=== PATIENT | female | born 1955 | race Caucasian/White ===

== ENCOUNTER 2022-10-08 10:14 | Inpatient (IN) ==
[2022-10-08 11:51] LABS: Hematocrit (blood only) 52.6 % (37.0-47.0); Hemoglobin 18.5 g/dl (12.0-16.0); Mean Corpuscular Hemoglobin 30.8 pg (25.0-34.0); Mean Corpuscular Hgb Conc 35.2 g/dL (32.0-36.0); Mean Corpuscular Volume 87.7 fL (80.0-100.0); Mean Platelet Volume 9.1 fL (9.4-12.4); Platelet Count 384 K/uL (130-400); RDW Coefficient of Variation 14.4 % (11.5-14.5); RDW Standard Deviation 45.1 fL (36.4-46.3)
[2022-10-08 12:14] LABS: Basophils # (auto) 0.11 K/uL (0-0.2); Basophils % (auto) 0.4 %; Eosinophils # (auto) 0.29 K/uL (0-0.50); Eosinophils % (auto) 1.2 %; Immature Granulocytes # (auto) 0.58 K/uL (0.01-0.20); Immature Granulocytes % (auto) 2.4 %; Lymphocytes # (auto) 6.09 K/uL (1.2-3.4); Lymphocytes % (auto) 24.9 %; Monocytes % (auto) 6.1 %; Neutrophils # (auto) 15.93 K/uL (1.40-6.50)
[2022-10-08 12:17] LABS: Alanine Aminotransferase 22 U/L (7-52); Albumin Globulin Ratio 1.9 (0.9-2); Albumin Level 4.4 gm/dl (3.4-5.0); Alkaline Phosphatase 57 U/L (34-104); Anion Gap 7 (3-11); Aspartate Aminotransferase 19 U/L (13-39); BUN Creatinine Ratio 24.5 (10-20); Bilirubin,Total 1.4 mg/dl (0.2-1.0); Blood Urea Nitrogen 23 mg/dl (6-23); Calcium 11.5 mg/dl (8.5-10.1); Carbon Dioxide 33 mmol/L (21-32); Chloride 100 mmol/L (98-107); Est GFR (African American) 74.3 ml/min; Est GFR (Non-African American) 64.1 ml/min; Globulin 2.3 gm/dl (2.5-4.0); Glucose 115 mg/dl (70-99(Fasting)); Lipase 34 U/L (11-82); Potassium 3.5 mmol/L (3.5-5.1); Sodium 140 mmol/L (136-145); Total Protein 6.7 gm/dl (6.0-8.3)
[2022-10-08] MEDS ORDERED: ONDANSETRON INJ 2 MG/ML 2 ML VIAL IV STA (12:22)
[2022-10-08] MEDS ORDERED: SODIUM CHLORIDE 0.9% 1000ML 1,000 ML IV ONE (12:22)
[2022-10-08] MEDS ORDERED: KETOROLAC TROMETHAMINE 15 MG/ML VIAL IV ONE (12:22)
[2022-10-08 12:25] LABS: Appearance Urine Cloudy (Clear); Bacteria Urine Automated Negative (Negative); Blood Urine Negative (Negative); Color Urine Dark Yellow; Epithelial Cell Urine Auto >30 /lpf (0-5); Glucose Urine UA Negative (Negative); Ketones Urine 1+ (Negative); Leukocyte Esterase Urine Trace (Negative); Nitrite Urine Positive (Negative); Protein Urine 2+ (Negative); Specific Gravity Urine 1.029 (1.000-1.030); Urobilinogen Urine Negative (Negative); pH Urine 5.5 (4.5-7.5)
[2022-10-08 12:26] LABS: Bilirubin Urine 1+ (Negative)
[2022-10-08 12:45] LABS: Calcium Oxalate Crystals Urine Present (None Prsent); Mucus Urine Present (None Prsent)
[2022-10-08 12:46] LABS: RBC Urine Automated 0-4 /hpf (0-4)
[2022-10-08] MEDS ORDERED: OPTIRAY 350 100ml IV ONE (13:17)
--- NOTE | 2022-10-08 13:31 | CT Scan Report ---
CT SCAN OF THE ABDOMEN AND PELVIS WITH IV CONTRAST CLINICAL HISTORY: Periumbilical abdominal pain. Nausea and vomiting. COMPARISON STUDY: No priors. TECHNIQUE: Following the IV administration of 90 cc of Optiray 350, CT scan of the abdomen and pelvi s is performed from the lung bases to the proximal femora. Images are reviewed in the axial, sagittal , and coronal planes. IV contrast was administered without complication. A dose lowering technique wa s utilized adhering to the principles of ALARA. CT DOSE: 306.84 mGy.cm FINDINGS: Lung bases: The heart is normal in size and without pericardial effusion. There are coronary artery c alcifications. Emphysematous change is suggested. There is minimal patchy groundglass consolidation i n the left lower lobe. Parenchymal scarring is seen in the right lower lobe with cystic change. There are impacted bronchi in the right lower lobe. No pleural effusion is identified. Liver: The contrast-enhanced liver is top normal in size. The liver demonstrates diffusely diminished attenuation indicating steatosis. There is no intrahepatic biliary ductal dilatation. The hepatic ve ins and portal veins are patent. Gallbladder: Adenomyomatosis is suggested in the fundal region. Spleen: Normal in size and attenuation. Pancreas: Unremarkable. Adrenal glands: Unremarkable. Kidneys: The contrast enhanced kidneys are normal in size and without hydronephrosis. The kidneys enh ance symmetrically. A 1.5 cm cyst is seen in the left kidney. Additional punctate cortical hypodensit ies also likely represent cysts but are too small for definitive characterization. Abdominal vasculature: The abdominal aorta is normal in course and caliber noting advanced atheroscle rotic calcification. Bowel: The small bowel loops are distended and fluid-filled measuring up to 3.3 cm diameter. The dist al small bowel and colon are decompressed, and the appearance is consistent with a bowel obstruction. A transition point is identified in the right pelvis involving the ileum as on image #317 and this i s likely in the basis of adhesions. Interloop fluid is noted. The small bowel loops above the transit ion point are fecalized. There is no pneumatosis intestinalis or portal venous gas. No focally thick- walled bowel loops are seen. The appendix is not identified and reported surgically absent. Peritoneum: No intraperitoneal free air is seen. Trace free fluid is noted in the pelvis. There is a small fat-containing umbilical hernia. Lymphadenopathy: None. Pelvic viscera: The bladder is decompressed and not well assessed. The uterus is surgically absent. N o adnexal lesion is seen. Skeletal structures: The skeletal structures are osteopenic. There is mild to moderate lumbosacral sp ondylosis. No lytic or blastic lesions are seen. IMPRESSION: 1. Small bowel obstruction. A transition point is identified in the right pelvis and this is likely o n the basis of adhesions. 2. No intraperitoneal free air is identified. No focally thick-walled bowel loops are identified and there is no pneumatosis intestinalis or portal venous gas. 3. There is interloop fluid and trace pelvic ascites. 4. There is minimal patchy groundglass consolidation in the left lower lobe, typical for a mild pneum onitis. Clinical correlation will be required. 5. Suspect emphysema. 6. Additional findings as above. ACT 112: Negative or not required by law. Electronically signed by: Reji Gay M.D. 10/08/2022 1:28 PM
--- NOTE | 2022-10-08 14:26 | Electrocardiogram Report ---
Test Reason : Blood Pressure : / mmHG Vent. Rate : 077 BPM Atrial Rate : 077 BPM P-R Int : 114 ms QRS Dur : 070 ms QT Int : 358 ms P-R-T Axes : 038 069 047 degrees QTc Int : 405 ms Poor data quality, interpretation may be adversely affected Normal sinus rhythm Nonspecific T wave abnormality Abnormal ECG No previous ECGs available Confirmed by Jose L Strong ([id number]) on 10/08/2022 2:26:08 PM Referred By: REFERRED SELF Confirmed By:Jose L Strong
[2022-10-08] MEDS ORDERED: PIPERACILLIN/TAZOBACTAM 4.5 GM/120 ML BAG IV ONE (15:48)
--- NOTE | 2022-10-08 16:41 | History & Physical Report ---
Date of Service October 08, 2022 Assessment & Plan (1) SBO (small bowel obstruction): (2) Leukocytosis: (3) Lymphocytosis: (4) Hypercalcemia: (5) Emphysema of lung: (6) Hypertension: Plan This is a 66-year-old female who has a significant past medical history of HTN, IBS, insomnia, BEAN, DDD, Fuchs syndrome II right, history of tobacco abuse who presents to ED secondary to abdominal pain, nausea, vomiting x1 day. Small bowel obstruction Patient with previous abdominal surgery x3, partial hysterectomy and appendectomy likely on basis of adhesions Admit to medical General surgery consulted Treat conservatively for now N.p.o., NG tube to LIS IVF NSS 100cc/hr + 20meq KCL IV APAP For mild pain, 2mg IV morphine mod pain, 4mg IV morphine severe pain IV PPI for now - pt reports black emesis, will follow h/h, no epigastric pain repeat KUB c scope 06/26 reviewed 4 polyps removed tubular adenoma no indication on medical end for antibiotics at this current time Leukocytosis Absent lymphocytosis May be reactive in setting of small bowel obstruction and underlying dehydration; however absolute lymphocytosis concerning Peripheral blood smear reviewed and sent for flow cytometry for further eval Hypercalcemia Ca 11.5 Likely elevated in setting of dehydration Hydrate and repeat in a.m. 06/2021 PTH was normal Dehydration in setting of SBO, vomiting continue IVF Polycythemia likely 2/2 dehydration known hx of tobacco use per epic pt Hgb 15 Tobacco abuse hx Emphysema on imaging continue nicotine patch encourage cessation procalcitonin ordered CT chest ? LLL pneumonitis, pt recently completed course of Augmentin her cough is stable and chronic - will hold on antibiotics now and monitor Abnormal UA + nitrites, leuks, no bacturia asymptomatic culture sent HTN on atenolol-chlorthalidone hold for now in setting of NPO BP 123/78, monitor IBS-C on linzess and colace as OP DVT ppx: SQ Heparin Dispo: Med/surg FULL CODE PCP: Yeimy Pt was seen and examined in collaboration with Dr. Chavarria, please see addendum A total of 75 minutes were spent with greater than 50% of that time face to face with the patient, personally reviewing all current laboratories, imaging studies, past medication reconciliation, outpatient chart review, and discussion with specialists to collaborate care for the patient with attending. Please see attending documentation for corrections and/or additions. History of Present Illness Chief Complaint: abd pain, n/v x 1 day. Primary Care Provider: Julio César Gaffney MD This is a 66-year-old female who has a significant past medical history of HTN, IBS, insomnia, BEAN, DDD, Fuchs syndrome II right, history of tobacco abuse who presents to ED secondary to abdominal pain, nausea, vomiting x1 day. 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 She had 7-8 episodes of dark emesis. Her last episode of emesis was approximately 9 AM. She also complains of periumbilical abdominal pain. Pain was gradual in onset, constant, currently 5 out of 10, waxes and wanes in severity, nothing makes it better and nothing makes it worse. She did have a very small hard bowel movement this morning. She denies melena or bright red blood per rectum. She has history of IBS and therefore suffers from constipation. She takes Linzess and Colace for this. She feels like as of late she has been more constipated despite her current regimen. She denies ever having similar symptoms in the past. She did not try anything for her symptoms at home. She denies fever, chills, sweats, lightheadedness, dizziness, chest pain, shortness of breath, dysuria, increased urgency or frequency with urination, or hematuria. Over the past 2 weeks patient has been suffering for a sinus infection. She was placed on a course of Augmentin as well as prednisone. She completed the Augmentin yesterday and the prednisone has been complete as well. She does have a chronic cough due to her prior history of smoking. She is tobacco free for 1 week and currently using a NicoDerm patch. She denies any productive cough or hemoptysis. In ED patient remained hemodynamically stable. CT abdomen pelvis revealed small bowel obstruction with transition point in the right pelvis likely on the basis of adhesions. There is interloop fluid and trace pelvic ascites. Minimal patchy groundglass consolidation of the left lower lobe, typical for a mild pneumonitis and suspect emphysema. She received IV fluid as well as IV Zosyn while in ED due to possible pneumonia. Allergies Allergy/AdvReac Type Severity Reaction Status Date / Time No Known Allergies Allergy Unverified 06/20/21 01:48 Home Medications Medication Instructions Recorded Confirmed Type aspirin 81 mg tablet,delayed 81 mg PO DAILY 06/20/21 10/08/22 History release (Rakesh Low Dose Aspirin) atenolol 50 mg-chlorthalidone 25 1 tab PO DAILY 06/20/21 10/08/22 History mg tablet bupropion HCl 150 mg 24 hr tablet, 150 mg PO DAILY 06/20/21 10/08/22 History extended release celecoxib 200 mg capsule 200 mg PO DAILY 06/20/21 10/08/22 History multivitamin 1 tab PO DAILY 06/20/21 10/08/22 History potassium chloride 20 mEq 20 meq PO DAILY 06/20/21 10/08/22 History tablet,extended release(part/cryst) docusate sodium 100 mg capsule 100 mg PO DAILY 10/08/22 10/08/22 History (Colace) flaxseed oil 1,000 mg capsule 1,000 mg PO DAILY 10/08/22 10/08/22 History linaclotide 145 mcg capsule 145 mcg PO DAILYBB 10/08/22 10/08/22 History (Linzess) nicotine 21 mg/24 hr daily 1 patch transdermal DAILY 10/08/22 10/08/22 History transdermal patch omeprazole 40 mg capsule,delayed 40 mg PO DAILY 10/08/22 10/08/22 History release trazodone 50 mg tablet 50 mg PO HS 10/08/22 10/08/22 History Past Med/Surg History Medical History DDD (degenerative disc disease) follows pain clinic for injections Fuchs' syndrome II Generalized anxiety disorder History of tobacco abuse Hypertension IBS (irritable bowel syndrome) Insomnia Surgical History History of carpal tunnel surgery of right wrist History of partial hysterectomy History of tonsillectomy and adenoidectomy Hx of appendectomy Hx of section x3 Hx of tubal ligation Family History Mother Breast cancer Hypertension Father Diabetes Social History Smoking Status: Former smoker Tobacco Type: Cigarettes packs per day: 1; Cigarettes Per Day: 20; Hx Alcohol Use: No Hx Substance Use: No Preferred Language: [place] marital status: / Current Living Situation: Family Current Living Situation Comment: son Feels Safe at Home: Yes Review of Systems Review of Systems: All systems reviewed & are unremarkable except as noted in HPI & below Physical Exam Physical Exam: Constitutional: WD/WN, vitals as above, NAD, sitting up in bed, pleasant, conversing easily Head: Normocephalic, Atraumatic Eyes: PERRL, conjunctivae normal, anicteric sclerae ENMT: external ear and nose normal, oropharynx normal Neck: trachea midline, no thyromegaly normal visual inspection Respiratory: normal respiratory effort, lungs clear to auscultation, no wheeze, rales, rhonchi. Normal insp/exp effort, no accessory muscle use Cardiovascular: RRR, no murmur, no edema Vessels: no JVD or carotid bruit Chest: normal inspection of chest Abdomen: hyperactive bs, soft, tender to palp around umbilicus, no rebound, guarding or rigidity, no hepatosplenomegaly Musculoskeletal: no cyanosis or clubbing, extremities motor strength 5/5 Skin: no rashes, warm and dry normal turgor Neurologic: PERRL, EOMI, accommodation nl, no face palsy, no dysarthria CN's II-XI intact bilaterally and moves all extremities Psychiatric: A+Ox3, euthymic affect Lymphatic: no cervical or axillary lymphadenopathy : deferred Results & Data Results & Data ([facility]) Vital Signs (Past 12 Hours) Vital Signs Temp Pulse Pulse Resp BP BP Pulse Ox 10/08/22 16:00 75 18 123/78 77 L 10/08/22 13:31 76 18 118/66 94 10/08/22 10:42 36.6 C 85 16 103/73 95 O2 Del Method 10/08/22 16:00 Room Air 10/08/22 13:31 10/08/22 10:42 Room Air Diagnostic Findings Abdomen/Pelvis CT 10/08/22 12:22 CT SCAN OF THE ABDOMEN AND PELVIS WITH IV CONTRAST CLINICAL HISTORY: Periumbilical abdominal pain. Nausea and vomiting. COMPARISON STUDY: No priors. TECHNIQUE: Following the IV administration of 90 cc of Optiray 350, CT scan of the abdomen and pelvis is performed from the lung bases to the proximal femora. Images are reviewed in the axial, sagittal, and coronal planes. IV contrast was administered without complication. A dose lowering technique was utilized adhering to the principles of ALARA. CT DOSE: 306.84 mGy.cm FINDINGS: Lung bases: The heart is normal in size and without pericardial effusion. There are coronary artery calcifications. Emphysematous change is suggested. There is minimal patchy groundglass consolidation in the left lower lobe. Parenchymal scarring is seen in the right lower lobe with cystic change. There are impacted bronchi in the right lower lobe. No pleural effusion is identified. Liver: The contrast-enhanced liver is top normal in size. The liver demonstrates diffusely diminished attenuation indicating steatosis. There is no intrahepatic biliary ductal dilatation. The hepatic veins and portal veins are patent. Gallbladder: Adenomyomatosis is suggested in the fundal region. Spleen: Normal in size and attenuation. Pancreas: Unremarkable. Adrenal glands: Unremarkable. Kidneys: The contrast enhanced kidneys are normal in size and without hydronephrosis. The kidneys enhance symmetrically. A 1.5 cm cyst is seen in the left kidney. Additional punctate cortical hypodensities also likely represent cysts but are too small for definitive characterization. Abdominal vasculature: The abdominal aorta is normal in course and caliber noting advanced atherosclerotic calcification. Bowel: The small bowel loops are distended and fluid-filled measuring up to 3.3 cm diameter. The distal small bowel and colon are decompressed, and the appearance is consistent with a bowel obstruction. A transition point is identified in the right pelvis involving the ileum as on image #[id number] and this is likely in the basis of adhesions. Interloop fluid is noted. The small bowel loops above the transition point are fecalized. There is no pneumatosis intestinalis or portal venous gas. No focally thick-walled bowel loops are seen. The appendix is not identified and reported surgically absent. Peritoneum: No intraperitoneal free air is seen. Trace free fluid is noted in the pelvis. There is a small fat-containing umbilical hernia. Lymphadenopathy: None. Pelvic viscera: The bladder is decompressed and not well assessed. The uterus is surgically absent. No adnexal lesion is seen. Skeletal structures: The skeletal structures are osteopenic. There is mild to moderate lumbosacral spondylosis. No lytic or blastic lesions are seen. IMPRESSION: 1. Small bowel obstruction. A transition point is identified in the right pelvis and this is likely on the basis of adhesions. 2. No intraperitoneal free air is identified. No focally thick-walled bowel loops are identified and there is no pneumatosis intestinalis or portal venous gas. 3. There is interloop fluid and trace pelvic ascites. 4. There is minimal patchy groundglass consolidation in the left lower lobe, typical for a mild pneumonitis. Clinical correlation will be required. 5. Suspect emphysema. 6. Additional findings as above. ACT 112: Negative or not required by law. Electronically signed by: Reji Gay M.D. 10/08/2022 1:28 PM Medications Administered Medication List Discontinued Medications Sodium Chloride (Nss 1000ml) 1,000 mls @ 999 mls/hr IV .Q1H1M ONE Stop: 10/08/22 13:22 Last Infusion: 10/08/22 15:18 Dose: 0 mls/hr Documented By: Admin: 10/08/22 12:41 Dose: 999 mls/hr Documented By: JOY Piperacillin Sod/Tazobactam Sod (Zosyn) 4.5 gm in 120 mls @ 240 mls/hr IV NOW ONE Stop: 10/08/22 16:17 Last Admin: 10/08/22 16:13 Dose: 240 mls/hr Documented By: Ioversol (Optiray 350 100ml) 90 ml IV ONCE ONE Stop: 10/08/22 13:18 Last Admin: 10/08/22 13:07 Dose: 90 ml Documented By: CARMELA Ketorolac Tromethamine (Ketorolac Tromethamine 15 Mg/Ml Vial) 15 mg IV NOW ONE Stop: 10/08/22 12:23 Last Admin: 10/08/22 12:41 Dose: 15 mg Documented By: JOY Ondansetron HCl (Ondansetron Inj 2 Mg/Ml 2 Ml Vial) 4 mg IV NOW STA Stop: 10/08/22 12:23 Last Admin: 10/08/22 12:41 Dose: 4 mg Documented By: JOY ECG Rate (beats per minute): 77 Rhythm: normal sinus Additional Comments: qtc 405ms, reviewed by me COVID-19 Results Results COVID-19 Adm Lab Results: RBC 6.00 M/uL (4.20-5.40) H 10/08/22 WBC 24.50 K/ul (4.8-10.8) H 10/08/22 Hgb 18.5 g/dl (12.0-16.0) H 10/08/22 Hct 52.6 % (37.0-47.0) H 10/08/22 Plt Count 384 K/uL (130-400) 10/08/22 Neutrophils (%) (Auto) 65.0 % 10/08/22 Lymphocytes (%) (Auto) 24.9 % 10/08/22 Monocytes # (Auto) 1.50 K/uL (0.11-0.59) H 10/08/22 Eosinophils # (Auto) 0.29 K/uL (0-0.50) 10/08/22 Immature Granulocyte % (Auto) 2.4 % 10/08/22 Neutrophils # (Auto) 15.93 K/uL (1.40-6.50) H 10/08/22 Lymphocytes # (Auto) 6.09 K/uL (1.2-3.4) H 10/08/22 Monocytes # (Auto) 1.50 K/uL (0.11-0.59) H 10/08/22 Eosinophils # (Auto) 0.29 K/uL (0-0.50) 10/08/22 Basophils # (Auto) 0.11 K/uL (0-0.2) 10/08/22 Immature Granulocyte # (Auto) 0.58 K/uL (0.01-0.20) H 10/08 Na 140 mmol/L (136-145) 10/08/22 K 3.5 mmol/L (3.5-5.1) 10/08/22 Cl 100 mmol/L (98-107) 10/08/22 CO2 33 mmol/L (21-32) H 10/08/22 Anion Gap 7 (3-11) 10/08/22 BUN 23 mg/dl (6-23) 10/08/22 Creatinine 0.94 mg/dl (0.6-1.2) 10/08/22 BUN/Creatinine Ratio 24.5 (10-20) H 10/08/22 Glucose Level 115 mg/dl (70-99(Fasting)) H 10/08/22 Ca 11.5 mg/dl (8.5-10.1) H 10/08/22 Total Bilirubin 1.4 mg/dl (0.2-1.0) H 10/08/22 AST/SGOT 19 U/L (13-39) 10/08/22 ALT/SGPT 22 U/L (7-52) 10/08/22 Alkaline Phosphatase 57 U/L (34-104) 10/08/22 Total Protein 6.7 gm/dl (6.0-8.3) 10/08/22 Albumin 4.4 gm/dl (3.4-5.0) 10/08/22 Globulin 2.3 gm/dl (2.5-4.0) L 10/08/22 Albumin/Globulin Ratio 1.9 (0.9-2) 10/08/22 Procalcitonin < 0.05 ng/ml (0-0.5) 10/08/22 Chest X-Ray 10/08/22 Code Status & VTE Plan Code Status FULL CODE VTE Prophylaxis Plan VTE Prophylaxis will be ordered: Yes Supervising Physician Co-Signing Physician Notes I have seen and examined the patient and have discussed the case with the provider above. I agree with the assessment and plan as stated with the following exceptions. Ms. Stout is a 66 yo smoker who quit one week ago presenting with excessive vomiting and abdominal pain 2/2 SBO. Vomiting began overnight after eating broccoli/cheese soup. She reports pain in her nose with the newly placed NG tube. She has upper abdominal pain which is constant. On physical exam she is in NAD aside from watering eyes and minor bleeding from NG tube insertion site. Lungs are clear to auscultation throughout. Cardiac auscultation reveals regular rate and rhythm with S1/2 heard and no mgr. Abdomen: +BS-normoactive. TTP in epigastric and LUQ, soft, nondistended. Mentating clearly, skin warm and dry. Labs reviewed and she appears dehydrated, consistent with history of vomiting. WBC 24 with left shift, H/H 18.5/53, plt 384. Chemistry within normal limits. Total bili elevated at 1.4 with normal LFTs, lactate negative, procal negative, UA contaminated with no recent reports of UTI symptoms. CT a/p reveals SBO wit a transition point in the right pelvis thought to be on the basis of adhesions. No free air seen, no portal venous gas and no bowel inflammation. Although there is some evidence of patchy pneumonitis at the lung bases, she is a smoker and was recently treated for a respiratory infection with a course of augmentin. She denies any respiratory symptoms at this time. 66 yo F presents with SBO and subsequent dehydration. Agree with NG tube placement per surgery who saw her in the ER, and conservative management. No indication for antibiotics at this time. Bowel rest with moniotring NG tube output overnight. Cont IVF. Deon,
--- NOTE | 2022-10-08 16:49 | Surgery Consultation ---
Date of Consultation October 08, 2022 Assessment & Plan (1) SBO (small bowel obstruction): pt is a 66 year-old female who presents to ER with abdominal pain with nausea and vomiting, IMP: SBO, Plan, no surgery indication now, I agree with conservative treatment first, NPO, IV fluid, iv antibiotic, NG tube, control pain, repeat labs and KUB in morning, pt may need surgery treatment if pt's symptoms are getting worse, pt agreed wit the plan, I answered all questions, will F/U History of Present Illness Reason for Consultation: SBO Requesting Physician: Jie Dela Cruz History of Present Illness History of Present Illness Chief Complaint: abd pain, n/v x 1 day. Primary Care Provider: Julio César Gaffney MD This is a 66-year-old female who has a significant past medical history of HTN, IBS, insomnia, BEAN, DDD, Fuchs syndrome II right, history of tobacco abuse who presents to ED secondary to abdominal pain, nausea, vomiting x1 day. 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 She had 7-8 episodes of dark emesis. Her last episode of emesis was approximately 9 AM. She also complains of periumbilical abdominal pain. I ( Hector Marie MD ) got a call for consult SBO, I reviewed pt's H/P, labs and CT scan with pt, Allergies Allergy/AdvReac Type Severity Reaction Status Date / Time No Known Allergies Allergy Unverified 06/20/21 01:48 Home Medications Medication Instructions Recorded Confirmed Type aspirin 81 mg tablet,delayed 81 mg PO DAILY 06/20/21 10/08/22 Hi story release (Rakesh Low Dose Aspirin) atenolol 50 mg-chlorthalidone 25 1 tab PO DAILY 06/20/21 3 History mg tablet bupropion HCl 150 mg 24 hr tablet, 150 mg PO DAILY 06/20/2110/08 History extended release celecoxib 200 mg capsule 200 mg PO DAILY 06/20/21 10/08/22 Histor y multivitamin 1 tab PO DAILY 06/20/21 10/08/22 History potassium chloride 20 mEq 20 meq PO DAILY 06/20/21 10/08/22 Histo ry tablet,extended release(part/cryst) docusate sodium 100 mg capsule 100 mg PO DAILY 10/08/22 10/08/22 History (Colace) flaxseed oil 1,000 mg capsule 1,000 mg PO DAILY 10/08/22 10/08/22 H istory linaclotide 145 mcg capsule 145 mcg PO DAILYBB 10/08/22 10/08/22 His tory (Linzess) nicotine 21 mg/24 hr daily 1 patch transdermal DAILY 10/08/22 3 History transdermal patch omeprazole 40 mg capsule,delayed 40 mg PO DAILY 10/08/22 3 History release B trazodone 50 mg tablet 50 mg PO HS 10/08/22 10/08/22 History Past Med/Surg History Medical History(Updated 10/08/22 @ 16:18 by Jie Adams PA-C) DDD (degenerative disc disease) follows pain clinic for injectionsFuchs' syndrome II Generalized anxiety disorder History of tobacco abuse Hypertension IBS (irritable bowel syndrome) Insomnia Surgical History(Updated 10/08/22 @ 16:03 by Jie Adams PA-C) History of carpal tunnel surgery of right wrist History of partial hysterectomy History of tonsillectomy and adenoidectomy Hx of appendectomy Hx of section x3Hx of tubal ligation Family History(Updated 10/08/22 @ 16:04 by Jie Adams PA-C) Mother Breast cancer HypertensionFather Diabetes Social History(Updated 10/08/22 @ 16:19 by Jie Adams PA-C) Smoking Status: Former smoker Tobacco Type: Cigarettes packs per day: 1; Cigarettes Per Day: 20; Hx Alcohol Use: No Hx Substance Use: No Preferred Language: Japanese marital status: / Current Living Situation: Family Current Living Situation Comment: son Feels Safe at Home: Yes Allergies Allergy/AdvReac Type Severity Reaction Status Date / Time No Known Allergies Allergy Unverified 06/20/21 01:48 Home Medications Medication Instructions Recorded Confirmed Type aspirin 81 mg tablet,delayed 81 mg PO DAILY 06/20/21 10/08/22 History release (Rakesh Low Dose Aspirin) atenolol 50 mg-chlorthalidone 25 1 tab PO DAILY 06/20/21 10/08/22 History mg tablet bupropion HCl 150 mg 24 hr tablet, 150 mg PO DAILY 06/20/21 10/08/22 History extended release celecoxib 200 mg capsule 200 mg PO DAILY 06/20/21 10/08/22 History multivitamin 1 tab PO DAILY 06/20/21 10/08/22 History potassium chloride 20 mEq 20 meq PO DAILY 06/20/21 10/08/22 History tablet,extended release(part/cryst) docusate sodium 100 mg capsule 100 mg PO DAILY 10/08/22 10/08/22 History (Colace) flaxseed oil 1,000 mg capsule 1,000 mg PO DAILY 10/08/22 10/08/22 History linaclotide 145 mcg capsule 145 mcg PO DAILYBB 10/08/22 10/08/22 History (Linzess) nicotine 21 mg/24 hr daily 1 patch transdermal DAILY 10/08/22 10/08/22 History transdermal patch omeprazole 40 mg capsule,delayed 40 mg PO DAILY 10/08/22 10/08/22 History release trazodone 50 mg tablet 50 mg PO HS 10/08/22 10/08/22 History Patient History Medical History (Updated 10/08/22 @ 16:50 by Hector Marie MD) DDD (degenerative disc disease) follows pain clinic for injections Fuchs' syndrome II Generalized anxiety disorder History of tobacco abuse Hypertension IBS (irritable bowel syndrome) Insomnia Surgical History (Updated 10/08/22 @ 16:03 by Jie Adams PA-C) History of carpal tunnel surgery of right wrist History of partial hysterectomy History of tonsillectomy and adenoidectomy Hx of appendectomy Hx of section x3 Hx of tubal ligation Family History (Updated 10/08/22 @ 16:04 by Jie Adams PA-C) Mother Breast cancer Hypertension Father Diabetes Social History (Updated 10/08/22 @ 16:19 by Jie Adams PA-C) Smoking Status: Former smoker Tobacco Type: Cigarettes packs per day: 1; Cigarettes Per Day: 20; Hx Alcohol Use: No Hx Substance Use: No Preferred Language: Japanese marital status: / Current Living Situation: Family Current Living Situation Comment: son Feels Safe at Home: Yes Review of Systems Constitutional: as per Subjective / HPI Eyes: as per Subjective / HPI Respiratory: as per Subjective / HPI Cardiovascular: Additional Comments: HTN Gastrointestinal: IBS Musculoskeletal: as per Subjective / HPI Neurologic: as per Subjective / HPI Psychiatric: as per Subjective / HPI (insomnia) Endocrine: as per Subjective / HPI Hematologic / Lymphatic: as per Subjective / HPI Physical Exam Constitutional: WD/WN, vitals as above Eyes: PERRL, conjunctivae normal, anicteric sclerae Neck: trachea midline, no thyromegaly Respiratory: normal respiratory effort, lungs clear to auscultation Cardiovascular: RRR, no murmur, no edema Gastrointestinal (Abdomen): soft, mild tenderness leonardo-umbilical area, no rebound pain, no distend, BS +, Musculoskeletal: no cyanosis or clubbing, extremities motor strength 5/5 Neurologic: patellar DTR's 2+ bilat, sensation intact Psychiatric: A+Ox3, euthymic affect Results & Data ([facility]) Vital Signs (Past 12 Hours) Vital Signs Temp Pulse Pulse Resp BP BP Pulse Ox 10/08/22 16:00 75 18 123/78 77 L 10/08/22 13:31 76 18 118/66 94 10/08/22 10:42 36.6 C 85 16 103/73 95 O2 Del Method 10/08/22 16:00 Room Air 10/08/22 13:31 10/08/22 10:42 Room Air Laboratory Results Abnormal lab results 10/08/22 10/08/22 10/08/22 Range/Units 11:23 11:23 11:50 WBC 24.50 H (4.8-10.8) K/ul RBC 6.00 H (4.20-5.40) M/uL Hgb 18.5 H (12.0-16.0) g/dl Hct 52.6 H (37.0-47.0) % MPV 9.1 L (9.4-12.4) fL Neut # (Auto) 15.93 H (1.40-6.50) K/uL Lymph # (Auto) 6.09 H (1.2-3.4) K/uL Clay # (Auto) 1.50 H (0.11-0.59) K/uL Immature Gran # (Auto) 0.58 H (0.01-0.20) K/uL Carbon Dioxide 33 H (21-32) mmol/L BUN/Creatinine Ratio 24.5 H (10-20) Glucose 115 H (70-99(Fasting)) mg/dl Calcium 11.5 H (8.5-10.1) mg/dl Total Bilirubin 1.4 H (0.2-1.0) mg/dl Globulin 2.3 L (2.5-4.0) gm/dl Urine Appearance Cloudy A (Clear) Urine Protein 2+ H (Negative) Urine Ketones 1+ H (Negative) Urine Nitrite Positive A (Negative) Urine Bilirubin 1+ H (Negative) Ur Leukocyte Esterase Trace H (Negative) U Epithel Cells (Auto) >30 H (0-5) /lpf Calcium Oxalate Crystal Present A (None Prsent) Urine Mucus Present A (None Prsent) Diagnostic Findings CT SCAN OF THE ABDOMEN AND PELVIS WITH IV CONTRAST CLINICAL HISTORY: Periumbilical abdominal pain. Nausea and vomiting. COMPARISON STUDY: No priors. TECHNIQUE: Following the IV administration of 90 cc of Optiray 350, CT scan of the abdomen and pelvis is performed from the lung bases to the proximal femora. Images are reviewed in the axial, sagittal, and coronal planes. IV contrast was administered without complication. A dose lowering technique was utilized adhering to the principles of ALARA. CT DOSE: 306.84 mGy.cm FINDINGS: Lung bases: The heart is normal in size and without pericardial effusion. There are coronary artery calcifications. Emphysematous change is suggested. There is minimal patchy groundglass consolidation in the left lower lobe. Parenchymal scarring is seen in the right lower lobe with cystic change. There are impacted bronchi in the right lower lobe. No pleural effusion is identified. Liver: The contrast-enhanced liver is top normal in size. The liver demonstrates diffusely diminished attenuation indicating steatosis. There is no intrahepatic biliary ductal dilatation. The hepatic veins and portal veins are patent. Gallbladder: Adenomyomatosis is suggested in the fundal region. Spleen: Normal in size and attenuation. Pancreas: Unremarkable. Adrenal glands: Unremarkable. Kidneys: The contrast enhanced kidneys are normal in size and without hydronephrosis. The kidneys enhance symmetrically. A 1.5 cm cyst is seen in the left kidney. Additional punctate cortical hypodensities also likely represent cysts but are too small for definitive characterization. Abdominal vasculature: The abdominal aorta is normal in course and caliber noting advanced atherosclerotic calcification. Bowel: The small bowel loops are distended and fluid-filled measuring up to 3.3 cm diameter. The distal small bowel and colon are decompressed, and the appearance is consistent with a bowel obstruction. A transition point is identified in the right pelvis involving the ileum as on image #317 and this is likely in the basis of adhesions. Interloop fluid is noted. The small bowel loops above the transition point are fecalized. There is no pneumatosis intestinalis or portal venous gas. No focally thick-walled bowel loops are seen. The appendix is not identified and reported surgically absent. Peritoneum: No intraperitoneal free air is seen. Trace free fluid is noted in the pelvis. There is a small fat-containing umbilical hernia. Lymphadenopathy: None. Pelvic viscera: The bladder is decompressed and not well assessed. The uterus is surgically absent. No adnexal lesion is seen. Skeletal structures: The skeletal structures are osteopenic. There is mild to moderate lumbosacral spondylosis. No lytic or blastic lesions are seen. IMPRESSION: 1. Small bowel obstruction. A transition point is identified in the right pelvis and this is likely on the basis of adhesions. 2. No intraperitoneal free air is identified. No focally thick-walled bowel loops are identified and there is no pneumatosis intestinalis or portal venous gas. 3. There is interloop fluid and trace pelvic ascites. 4. There is minimal patchy groundglass consolidation in the left lower lobe, typical for a mild pneumonitis. Clinical correlation will be required. 5. Suspect emphysema. 6. Additional findings as above.
--- NOTE | 2022-10-08 17:01 | XRay Report ---
XR chest 1V portable HISTORY: 66 years-old Female sbo acute shortness of breath COMPARISON: CT abdomen and pelvis of same day TECHNIQUE: AP view of the chest FINDINGS: Cardiomediastinal and hilar silhouettes are within normal limits. Pulmonary emphysema. No pneumothora x, large pleural effusion or overt pulmonary edema. Mild subsegmental right basilar densities are aga in noted. Cystic focus of the right lower lobe is better seen on the comparison exam. Minimal interst itial coarsening of the left lung base. Degenerative changes of the shoulders and spine. IMPRESSION: 1. Mild right basilar atelectasis/scarring. 2. The subtle groundglass densities of the left lower lobe described on the CT study of same day are not well visualized by radiography. 3. Mild pulmonary emphysema. ACT 112: Negative or not required by law. The above report was generated using voice recognition software. It may contain grammatical, syntax o r spelling errors. Electronically signed by: Pb Felder M.D. 10/08/2022 5:00 PM
[2022-10-08] MEDS ORDERED: SODIUM CHLORIDE 0.65% NA SOLN 45 ML (OCEAN) NAE PRN (18:04)
[2022-10-08] MEDS ORDERED: CHLORASEPTIC 1.4% SOLN 180 ML BTL MT PRN (18:04)
[2022-10-08] MEDS ORDERED: SODIUM CHLORIDE 0.65% NA SOLN 45 ML (OCEAN) NAE STA (18:11)
[2022-10-08] MEDS ORDERED: CHLORASEPTIC 1.4% SOLN 180 ML BTL MT STA (18:12)
--- NOTE | 2022-10-08 19:03 | XRay Report ---
KUB HISTORY: Status post placement of an enteric tube. NG placement COMPARISON: CT abdomen and pelvis of same day FINDINGS: Status post placement of an enteric tube, coiled within the stomach with distal tip overlyi ng the gastric cardia. Medial right lung base opacities are again noted. Dilated loops of small bowel within the upper abdomen. No renal calculi. No ureteral calculi. No pneumoperitoneum or pneumatosis . No fracture. IMPRESSION: Status post placement of an enteric tube, distal tip overlying the gastric cardia. ACT 112: Negative or not required by law. The above report was generated using voice recognition software. It may contain grammatical, syntax o r spelling errors. Electronically signed by: Pb Felder M.D. 10/08/2022 7:01 PM
--- NOTE | 2022-10-08 19:08 | Emergency Department Note ---
Impression & Plan SBO (small bowel obstruction), Vomiting ED Provider Note INFORMANT: Patient ED PROVIDER(S): Malvin Owens DO CHIEF COMPLAINT: Nausea and vomiting PLAN: Disposition: Admission Condition: Stable Outpatient prescription management: none Referral: I spoke with the hospitalist, who will see the patient for admission/observation and further evaluation and consultation. MEDICAL DECISION MAKIN-year-old female presents to the ED with a chief complaint of awakening in the middle the night with nausea and vomiting. She does describes her vomiting is black. She also reports some periumbilical discomfort. She has vomiting every 1 hour through the night. She denies any gas from below. She states that she has a history of hysterectomy and appendectomy as well as 3 C-sections. The patient reports her last episode of nausea and vomiting was at 9:30 AM. She has had some dry heaves. She does have some tenderness in the periumbilical region on my exam. She states that she did move some bowel this morning a small amount. She was recently on antibiotics and prednisone for sinus infection. Her last dose of prednisone was on Wednesday. Urine appears to be contaminated but no obvious infection. A CT scan of the abdomen pelvis shows a small bowel obstruction likely related to adhesions. She may have a left lower lobe pneumonitis on CT scan as well. A chest x-ray did not show that. She does have a leukocytosis of 24,000. Hemoglobin is 18 suggesting some dehydration. EKG shows a normal sinus rhythm. Lipase was negative for pancreatitis. The patient was treated with IV fluids. She was given IV Zosyn. She was also given some IV Zofran and IV Toradol. She will be seen by the hospitalist for further evaluation and care. I did speak with them. I did page surgery and they were made aware of the situation as well. Triage Nursing notes reviewed. Vital Signs: reviewed Prior /Outside records reviewed: none Differential diagnosis: Differential includes small bowel obstruction, electrolyte abnormality, dehydration, infection, other. Diagnostics, as interpreted by me: 12 lead ECG: Normal sinus rhythm at a rate of 77. No ST elevation. No PVCs. Normal QTC. Cardiac Monitoring: none Medical decision rules: none Imaging studies: Chest x-ray: No obvious pneumonia. Procedures: none. Critical care: none. HPI: See MDM above. PAST MEDICAL HISTORY: See Below PAST SURGICAL HISTORY: See Below SOCIAL HISTORY: See Below HOME MEDICATIONS: See Below ALLERGIES: See Below VITALS: See Below PHYSICAL EXAMINATION: CONSTITUTIONAL/VITAL SIGNS: Reviewed GENERAL: Non-toxic in appearance. INTEGUMENTARY: Warm, dry, and Spur. HEAD: Normocephalic. EYES: without scleral icterus. ENT/OROPHARYNX: clear and moist. RESPIRATORY: No increased work of breathing. Lungs clear. CARDIOVASCULAR: Regular rate. Regular rhythm. GI/ABDOMEN: Soft and tender in the periumbilical area. Decreased bowel sounds. EXTREMITIES: Normal NEUROLOGICAL: Intact without focal deficits. PSYCHIATRIC: Normal affect. MUSCULOSKELETAL: Normal. TRIAGE NURSING DOCUMENTATION REVIEWED. Past Med/Surg History Medical History DDD (degenerative disc disease) follows pain clinic for injections Fuchs' syndrome II Generalized anxiety disorder History of tobacco abuse Hypertension IBS (irritable bowel syndrome) Insomnia Surgical History History of carpal tunnel surgery of right wrist History of partial hysterectomy History of tonsillectomy and adenoidectomy Hx of appendectomy Hx of section x3 Hx of tubal ligation Family History Mother Breast cancer Hypertension Father Diabetes Social History Smoking Status: Former smoker Tobacco Type: Cigarettes packs per day: 1; Cigarettes Per Day: 20; Hx Alcohol Use: No Hx Substance Use: No Preferred Language: Syriac marital status: / Current Living Situation: Family Current Living Situation Comment: son Feels Safe at Home: Yes Allergies Allergies Allergy/AdvReac Type Severity Reaction Status Date / Time No Known Allergies Allergy Unverified 06/20/21 01:48 Home Meds Home Medications Medication Instructions Recorded Confirmed aspirin 81 mg tablet,delayed 81 mg PO DAILY 06/20/21 10/08/22 release (Rakesh Low Dose Aspirin) atenolol 50 mg-chlorthalidone 25 1 tab PO DAILY 06/20/21 10/08/22 mg tablet bupropion HCl 150 mg 24 hr tablet, 150 mg PO DAILY 06/20/21 10/08/22 extended release celecoxib 200 mg capsule 200 mg PO DAILY 06/20/21 10/08/22 multivitamin 1 tab PO DAILY 06/20/21 10/08/22 potassium chloride 20 mEq 20 meq PO DAILY 06/20/21 10/08/22 tablet,extended release(part/cryst) docusate sodium 100 mg capsule 100 mg PO DAILY 10/08/22 10/08/22 (Colace) flaxseed oil 1,000 mg capsule 1,000 mg PO DAILY 10/08/22 10/08/22 linaclotide 145 mcg capsule 145 mcg PO DAILYBB 10/08/22 10/08/22 (Linzess) nicotine 21 mg/24 hr daily 1 patch transdermal DAILY 10/08/22 10/08/22 transdermal patch omeprazole 40 mg capsule,delayed 40 mg PO DAILY 10/08/22 10/08/22 release trazodone 50 mg tablet 50 mg PO HS 10/08/22 10/08/22 Results & Data (ED) Vital Signs Vital Signs - 24 hr 10/08/22 10:42 10/08/22 13:31 10/08/22 16:00 Temperature 36.6 C Temperature Source Temporal Artery Scan Pulse Rate 85 76 Pulse Rate [Apical] 75 Pulse Rate from SpO2 Sensor 77 Pulse Rhythm [Apical] Regular Respiratory Rate 16 18 18 Respiratory Effort / Characteristics Non-Labored Non-Labored Respiratory Depth Normal Normal Respiratory Pattern Regular Blood Pressure 103/73 118/66 Blood Pressure [Left Arm] 123/78 Blood Pressure Mean 83 83 Blood Pressure Mean [Left Arm] 93 Blood Pressure Position [Left Arm] Lying Pulse Oximetry 95 94 77 L Oxygen Delivery Method Room Air Room Air Sepsis Recent Fever Within 48 Hours No Sepsis New/Unexplained Change in Mental Status No Sepsis Action Taken by Nursing No Action Required 10/08/22 18:00 10/08/22 19:03 Temperature Temperature Source Pulse Rate Pulse Rate [Apical] 73 Pulse Rate from SpO2 Sensor Pulse Rhythm [Apical] Regular Respiratory Rate 18 Respiratory Effort / Characteristics Non-Labored Respiratory Depth Normal Respiratory Pattern Regular Blood Pressure Blood Pressure [Left Arm] 112/58 L Blood Pressure Mean Blood Pressure Mean [Left Arm] 76 Blood Pressure Position [Left Arm] Lying Pulse Oximetry 97 Oxygen Delivery Method Room Air Room Air Sepsis Recent Fever Within 48 Hours Sepsis New/Unexplained Change in Mental Status Sepsis Action Taken by Nursing Laboratory Data 10/08/22 11:23 10/08/22 11:23 Lab Results 10/08/22 10/08/22 10/08/22 Range/Units 11:23 11:23 11:50 WBC 24.50 H (4.8-10.8) K/ul RBC 6.00 H (4.20-5.40) M/uL Hgb 18.5 H (12.0-16.0) g/dl Hct 52.6 H (37.0-47.0) % MCV 87.7 (80.0-100.0) fL MCH 30.8 (25.0-34.0) pg MCHC 35.2 (32.0-36.0) g/dL RDW Std Deviation 45.1 (36.4-46.3) fL RDW Coeff of Chrystal 14.4 (11.5-14.5) % Plt Count 384 (130-400) K/uL MPV 9.1 L (9.4-12.4) fL Immature Gran % (Auto) 2.4 % Neut % (Auto) 65.0 % Lymph % (Auto) 24.9 % Bath % (Auto) 6.1 % Eos % (Auto) 1.2 % Baso % (Auto) 0.4 % Neut # (Auto) 15.93 H (1.40-6.50) K/uL Lymph # (Auto) 6.09 H (1.2-3.4) K/uL Bath # (Auto) 1.50 H (0.11-0.59) K/uL Eos # (Auto) 0.29 (0-0.50) K/uL Baso # (Auto) 0.11 (0-0.2) K/uL Immature Gran # (Auto) 0.58 H (0.01-0.20) K/uL Blood Smear Review Sodium 140 (136-145) mmol/L Potassium 3.5 (3.5-5.1) mmol/L Chloride 100 (98-107) mmol/L Carbon Dioxide 33 H (21-32) mmol/L Anion Gap 7 (3-11) BUN 23 (6-23) mg/dl Creatinine 0.94 (0.6-1.2) mg/dl Est Cr Clr Drug Dosing Not Reportable Est GFR ( Amer) 74.3 ml/min Est GFR (Non-Af Amer) 64.1 ml/min BUN/Creatinine Ratio 24.5 H (10-20) Glucose 115 H (70-99(Fasting)) mg/dl Lactate (0.4-2.0) mmol/L Calcium 11.5 H (8.5-10.1) mg/dl Total Bilirubin 1.4 H (0.2-1.0) mg/dl AST 19 (13-39) U/L ALT 22 (7-52) U/L Alkaline Phosphatase 57 (34-104) U/L Total Protein 6.7 (6.0-8.3) gm/dl Albumin 4.4 (3.4-5.0) gm/dl Globulin 2.3 L (2.5-4.0) gm/dl Albumin/Globulin Ratio 1.9 (0.9-2) Lipase 34 (11-82) U/L Procalcitonin (0-0.5) ng/ml Urine Color Dark Yellow Urine Appearance Cloudy A (Clear) Urine pH 5.5 (4.5-7.5) Ur Specific [place] 1.029 (1.000-1.030) Urine Protein 2+ H (Negative) Urine Glucose (UA) Negative (Negative) Urine Ketones 1+ H (Negative) Urine Blood Negative (Negative) Urine Nitrite Positive A (Negative) Urine Bilirubin 1+ H (Negative) Urine Urobilinogen Negative (Negative) Ur Leukocyte Esterase Trace H (Negative) Urine WBC (Auto) 1-5 (0-5) /hpf Urine RBC (Auto) 0-4 (0-4) /hpf U Hyaline Cast (Auto) 1-5 (0-5) /lpf U Epithel Cells (Auto) >30 H (0-5) /lpf Urine Bacteria (Auto) Negative (Negative) Urine Crystals Not Reportable Calcium Oxalate Crystal Present A (None Prsent) Urine Mucus Present A (None Prsent) SARS-CoV-2, RNA, NAAT (NEGATIVE) 10/08/22 10/08/22 10/08/22 Range/Units 16:13 16:13 18:10 WBC (4.8-10.8) K/ul RBC (4.20-5.40) M/uL Hgb (12.0-16.0) g/dl Hct (37.0-47.0) % MCV (80.0-100.0) fL MCH (25.0-34.0) pg MCHC (32.0-36.0) g/dL RDW Std Deviation (36.4-46.3) fL RDW Coeff of Chrystal (11.5-14.5) % Plt Count (130-400) K/uL MPV (9.4-12.4) fL Immature Gran % (Auto) % Neut % (Auto) % Lymph % (Auto) % Bath % (Auto) % Eos % (Auto) % Baso % (Auto) % Neut # (Auto) (1.40-6.50) K/uL Lymph # (Auto) (1.2-3.4) K/uL Bath # (Auto) (0.11-0.59) K/uL Eos # (Auto) (0-0.50) K/uL Baso # (Auto) (0-0.2) K/uL Immature Gran # (Auto) (0.01-0.20) K/uL Blood Smear Review Sodium (136-145) mmol/L Potassium (3.5-5.1) mmol/L Chloride (98-107) mmol/L Carbon Dioxide (21-32) mmol/L Anion Gap (3-11) BUN (6-23) mg/dl Creatinine (0.6-1.2) mg/dl Est Cr Clr Drug Dosing Est GFR ( Amer) ml/min Est GFR (Non-Af Amer) ml/min BUN/Creatinine Ratio (10-20) Glucose (70-99(Fasting)) mg/dl Lactate 0.7 (0.4-2.0) mmol/L Calcium (8.5-10.1) mg/dl Total Bilirubin (0.2-1.0) mg/dl AST (13-39) U/L ALT (7-52) U/L Alkaline Phosphatase (34-104) U/L Total Protein (6.0-8.3) gm/dl Albumin (3.4-5.0) gm/dl Globulin (2.5-4.0) gm/dl Albumin/Globulin Ratio (0.9-2) Lipase (11-82) U/L Procalcitonin < 0.05 (0-0.5) ng/ml Urine Color Urine Appearance (Clear) Urine pH (4.5-7.5) Ur Specific [place] (1.000-1.030) Urine Protein (Negative) Urine Glucose (UA) (Negative) Urine Ketones (Negative) Urine Blood (Negative) Urine Nitrite (Negative) Urine Bilirubin (Negative) Urine Urobilinogen (Negative) Ur Leukocyte Esterase (Negative) Urine WBC (Auto) (0-5) /hpf Urine RBC (Auto) (0-4) /hpf U Hyaline Cast (Auto) (0-5) /lpf U Epithel Cells (Auto) (0-5) /lpf Urine Bacteria (Auto) (Negative) Urine Crystals Calcium Oxalate Crystal (None Prsent) Urine Mucus (None Prsent) SARS-CoV-2, RNA, NAAT NEGATIVE (NEGATIVE) Administered Medications Discontinued Medications Sodium Chloride (Nss 1000ml) 1,000 mls @ 999 mls/hr IV .[id number] ONE Stop: 10/08/22 13:22 Last Infusion: 10/08/22 15:18 Dose: 0 mls/hr Documented By: Admin: 10/08/22 12:41 Dose: 999 mls/hr Documented By: JOY Piperacillin Sod/Tazobactam Sod (Zosyn) 4.5 gm in 120 mls @ 240 mls/hr IV NOW ONE Stop: 10/08/22 16:17 Last Infusion: 10/08/22 16:54 Dose: 0 mls/hr Documented By: Admin: 10/08/22 16:13 Dose: 240 mls/hr Documented By: Ioversol (Optiray 350 100ml) 90 ml IV ONCE ONE Stop: 10/08/22 13:18 Last Admin: 10/08/22 13:07 Dose: 90 ml Documented By: CARMELA Ketorolac Tromethamine (Ketorolac Tromethamine 15 Mg/Ml Vial) 15 mg IV NOW ONE Stop: 10/08/22 12:23 Last Admin: 10/08/22 12:41 Dose: 15 mg Documented By: JOY Ondansetron HCl (Ondansetron Inj 2 Mg/Ml 2 Ml Vial) 4 mg IV NOW STA Stop: 10/08/22 12:23 Last Admin: 10/08/22 12:41 Dose: 4 mg Documented By: JOY Imaging Data Radiologist's Impression: Abdomen/Pelvis CT 10/08/22 12:22 CT SCAN OF THE ABDOMEN AND PELVIS WITH IV CONTRAST CLINICAL HISTORY: Periumbilical abdominal pain. Nausea and vomiting. COMPARISON STUDY: No priors. TECHNIQUE: Following the IV administration of 90 cc of Optiray 350, CT scan of the abdomen and pelvis is performed from the lung bases to the proximal femora. Images are reviewed in the axial, sagittal, and coronal planes. IV contrast was administered without complication. A dose lowering technique was utilized adhering to the principles of ALARA. CT DOSE: 306.84 mGy.cm FINDINGS: Lung bases: The heart is normal in size and without pericardial effusion. There are coronary artery calcifications. Emphysematous change is suggested. There is minimal patchy groundglass consolidation in the left lower lobe. Parenchymal scarring is seen in the right lower lobe with cystic change. There are impacted bronchi in the right lower lobe. No pleural effusion is identified. Liver: The contrast-enhanced liver is top normal in size. The liver demonstrates diffusely diminished attenuation indicating steatosis. There is no intrahepatic biliary ductal dilatation. The hepatic veins and portal veins are patent. Gallbladder: Adenomyomatosis is suggested in the fundal region. Spleen: Normal in size and attenuation. Pancreas: Unremarkable. Adrenal glands: Unremarkable. Kidneys: The contrast enhanced kidneys are normal in size and without hydronephrosis. The kidneys enhance symmetrically. A 1.5 cm cyst is seen in the left kidney. Additional punctate cortical hypodensities also likely represent cysts but are too small for definitive characterization. Abdominal vasculature: The abdominal aorta is normal in course and caliber noting advanced atherosclerotic calcification. Bowel: The small bowel loops are distended and fluid-filled measuring up to 3.3 cm diameter. The distal small bowel and colon are decompressed, and the appearance is consistent with a bowel obstruction. A transition point is identified in the right pelvis involving the ileum as on image #[id number] and this is likely in the basis of adhesions. Interloop fluid is noted. The small bowel loops above the transition point are fecalized. There is no pneumatosis intestinalis or portal venous gas. No focally thick-walled bowel loops are seen. The appendix is not identified and reported surgically absent. Peritoneum: No intraperitoneal free air is seen. Trace free fluid is noted in the pelvis. There is a small fat-containing umbilical hernia. Lymphadenopathy: None. Pelvic viscera: The bladder is decompressed and not well assessed. The uterus is surgically absent. No adnexal lesion is seen. Skeletal structures: The skeletal structures are osteopenic. There is mild to moderate lumbosacral spondylosis. No lytic or blastic lesions are seen. IMPRESSION: 1. Small bowel obstruction. A transition point is identified in the right pelvis and this is likely on the basis of adhesions. 2. No intraperitoneal free air is identified. No focally thick-walled bowel loops are identified and there is no pneumatosis intestinalis or portal venous gas. 3. There is interloop fluid and trace pelvic ascites. 4. There is minimal patchy groundglass consolidation in the left lower lobe, typical for a mild pneumonitis. Clinical correlation will be required. 5. Suspect emphysema. 6. Additional findings as above. ACT 112: Negative or not required by law. Electronically signed by: Reji Gay M.D. 10/08/2022 1:28 PM Chest X-Ray 10/08/22 16:32 XR chest 1V portable HISTORY: 66 years-old Female sbo acute shortness of breath COMPARISON: CT abdomen and pelvis of same day TECHNIQUE: AP view of the chest FINDINGS: Cardiomediastinal and hilar silhouettes are within normal limits. Pulmonary emphysema. No pneumothorax, large pleural effusion or overt pulmonary edema. Mild subsegmental right basilar densities are again noted. Cystic focus of the right lower lobe is better seen on the comparison exam. Minimal interstitial coarsening of the left lung base. Degenerative changes of the shoulders and spine. IMPRESSION: 1. Mild right basilar atelectasis/scarring. 2. The subtle groundglass densities of the left lower lobe described on the CT study of same day are not well visualized by radiography. 3. Mild pulmonary emphysema. ACT 112: Negative or not required by law. The above report was generated using voice recognition software. It may contain grammatical, syntax or spelling errors. Electronically signed by: Pb Felder M.D. 10/08/2022 5:00 PM KUB X-Ray 10/08/22 18:06 KUB HISTORY: Status post placement of an enteric tube. NG placement COMPARISON: CT abdomen and pelvis of same day FINDINGS: Status post placement of an enteric tube, coiled within the stomach with distal tip overlying the gastric cardia. Medial right lung base opacities are again noted. Dilated loops of small bowel within the upper abdomen. No renal calculi. No ureteral calculi. No pneumoperitoneum or pneumatosis. No fracture. IMPRESSION: Status post placement of an enteric tube, distal tip overlying the gastric cardia. ACT 112: Negative or not required by law. The above report was generated using voice recognition software. It may contain grammatical, syntax or spelling errors. Electronically signed by: Pb Felder M.D. 10/08/2022 7:01 PM Discharge Plan Visit Data Chief Complaint: Vomiting Stated Complaint: VOMITING BLACK ALL NIGHT ED Provider: Malvin Owens Discharge Problem: SBO (small bowel obstruction), Vomiting Patient Disposition: Being Evaluated by Hospitalist Discharge Instructions Interventions: ED Discharge Assessment Last Done: 10/08/22 19:03 Forms Stand Alone Forms: My [facility] [employer] Prescriptions Prescriptions: No Action celecoxib 200 mg capsule 200 mg PO DAILY atenolol-chlorthalidone 50-25 mg tablet 1 tab PO DAILY potassium chloride 20 mEq tablet,ER particles/crystals 20 meq PO DAILY bupropion HCl 150 mg tablet extended release 24 hr 150 mg PO DAILY multivitamin [One A Day Vitamin] Tablet 1 tab PO DAILY aspirin [Rakesh Low Dose Aspirin] 81 mg Tablet,Delayed Release (Dr/Ec) 81 mg PO DAILY trazodone 50 mg tablet 50 mg PO HS omeprazole 40 mg capsule,delayed release(DR/EC) 40 mg PO DAILY Linzess 145 mcg capsule 145 mcg PO DAILYBB nicotine [Nicoderm] 21 mg/24 hr Patch 24 Hour 1 patch TRANSDERMAL DAILY flaxseed oil 1,000 mg Capsule 1,000 mg PO DAILY Rx Instructions: administer with a meal docusate sodium [Colace] 100 mg Capsule 100 mg PO DAILY Referrals Referrals: Julio César Gaffney MD [Primary Care Provider] -
[2022-10-08] MEDS ORDERED: MoRPHine SULFATE 4 MG/ML 1 ML CARP\\VIAL IV PRN (21:00)
[2022-10-08] MEDS ORDERED: ACETAMINOPHEN 1,000 MG/100 ML VIAL IV PRN (21:00)
[2022-10-08] MEDS ORDERED: ONDANSETRON INJ 2 MG/ML 2 ML VIAL IV PRN (21:00)
[2022-10-08] MEDS: HEPARIN SOD 5,000 UNIT/0.5 ML VIAL SQ SCH (21:47)
[2022-10-08] MEDS: PANTOprazole 40 MG in SYRINGE 0 ML IV SCH (21:47)
[2022-10-08] MEDS: NSS + 20MEQ KCL 20 MEQ/1,000 ML BAG IV SCH (21:47)
[2022-10-08] MEDS: MoRPHine SULFATE 2 MG/ML CARP IV PRN (21:54)
[2022-10-09] MEDS: NSS + 20MEQ KCL 20 MEQ/1,000 ML BAG IV SCH (05:34)
[2022-10-09] MEDS: HEPARIN SOD 5,000 UNIT/0.5 ML VIAL SQ SCH ×3 (05:36→22:05)
[2022-10-09] MEDS: MoRPHine SULFATE 2 MG/ML CARP IV PRN (05:42)
[2022-10-09] MEDS: NICOTINE 21 MG/24 HR TDSY TD SCH (08:26)
[2022-10-09 09:51] LABS: Hematocrit (blood only) 43.1 % (37.0-47.0); Hemoglobin 14.8 g/dl (12.0-16.0); Mean Corpuscular Hgb Conc 34.3 g/dL (32.0-36.0); Mean Corpuscular Volume 90.4 fL (80.0-100.0); Mean Platelet Volume 9.5 fL (9.4-12.4); Platelet Count 308 K/uL (130-400); RDW Coefficient of Variation 14.6 % (11.5-14.5); RDW Standard Deviation 48.1 fL (36.4-46.3); Red Blood Count 4.77 M/uL (4.20-5.40); White Blood Count 15.88 K/ul (4.8-10.8)
[2022-10-09 10:07] LABS: Basophils # (auto) 0.06 K/uL (0-0.2); Basophils % (auto) 0.4 %; Eosinophils # (auto) 0.29 K/uL (0-0.50); Eosinophils % (auto) 1.8 %; Immature Granulocytes # (auto) 0.09 K/uL (0.01-0.20); Immature Granulocytes % (auto) 0.6 %; Lymphocytes # (auto) 5.57 K/uL (1.2-3.4); Lymphocytes % (auto) 35.1 %; Monocytes # (auto) 0.85 K/uL (0.11-0.59); Monocytes % (auto) 5.4 %; Neutrophils # (auto) 9.02 K/uL (1.40-6.50); Neutrophils % (auto) 56.7 %
--- NOTE | 2022-10-09 11:02 | Surgery Progress Note ---
Date of Service October 09, 2022 Assessment & Plan (1) SBO (small bowel obstruction): Plan: afebrile, vss leukocytosis improved to 15k from 24k passing flatus NGT with 100 cc output since placement abdomen soft nondistended KUB today showing moderate stool throughout colon with air in colon as well, official read still pending Plan: Continue conservative management NGT to LIS NPO Miralax via NGT given history of constipation and formed stool in colon highly encouraged ambulating hallway limit narcotics continue medical management [facility] surgery covering for weekend Dr. Marie was present during my examination and agrees with above Admission and Anticipated Discharge Date Admission Date: October 08, 2022 Subjective still having abdominal pain, about the same passing gas no n,v usually takes Linzess and colace for constipation, sometimes needs to take laxative Physical Exam Constitutional: WD/WN, vitals as above cooperative and comfortable; no acute distress and not ill appearing Neck: normal visual inspection and trachea midline Respiratory: normal respiratory effort; no respiratory distress, no labored breathing and no retractions Gastrointestinal (Abdomen): Inspection/Auscultation: abdomen normal to inspection and + hypoactive bowel sounds; abdomen not distended and + abnormal bowel sounds Percussion/Palpation: + abdomen tender (lower abdomen on deep palpation) and abdomen soft; no guarding and abdomen not rigid NGT with dark bilious output in canister Skin: no rashes, warm and dry Psychiatric: A+Ox3, euthymic affect Results & Data ([facility]) Vital Signs (Past 12 Hours) Vital Signs Temp Pulse Resp BP Pulse Ox O2 Del Method 10/09/22 08:33 36.5 C 77 15 130/78 95 Room Air Laboratory Results 10/09/22 10/09/22 10/08/22 Range/Units 09:12 09:12 18:10 WBC 15.88 H (4.8-10.8) K/ul RBC 4.77 (4.20-5.40) M/uL Hgb 14.8 D (12.0-16.0) g/dl Hct 43.1 (37.0-47.0) % MCV 90.4 (80.0-100.0) fL MCH 31.0 (25.0-34.0) pg MCHC 34.3 (32.0-36.0) g/dL RDW Std Deviation 48.1 H (36.4-46.3) fL RDW Coeff of Chrystal 14.6 H (11.5-14.5) % Plt Count 308 (130-400) K/uL MPV 9.5 (9.4-12.4) fL Immature Gran % (Auto) 0.6 % Neut % (Auto) 56.7 % Lymph % (Auto) 35.1 % [place] % (Auto) 5.4 % Eos % (Auto) 1.8 % Baso % (Auto) 0.4 % Neut # (Auto) 9.02 H (1.40-6.50) K/uL Lymph # (Auto) 5.57 H (1.2-3.4) K/uL [place] # (Auto) 0.85 H (0.11-0.59) K/uL Eos # (Auto) 0.29 (0-0.50) K/uL Baso # (Auto) 0.06 (0-0.2) K/uL Immature Gran # (Auto) 0.09 (0.01-0.20) K/uL Blood Smear Review Sodium Pending (136-145) mmol/L Potassium Pending (3.5-5.1) mmol/L Chloride Pending (98-107) mmol/L Carbon Dioxide Pending (21-32) mmol/L Anion Gap Pending (3-11) BUN Pending (6-23) mg/dl Creatinine Pending (0.6-1.2) mg/dl Est Cr Clr Drug Dosing Pending Est GFR ( Amer) Pending ml/min Est GFR (Non-Af Amer) Pending ml/min BUN/Creatinine Ratio Pending (10-20) Glucose Pending (70-99(Fasting)) mg/dl Lactate (0.4-2.0) mmol/L Calcium Pending (8.5-10.1) mg/dl Magnesium Pending Total Bilirubin Pending (0.2-1.0) mg/dl Direct Bilirubin (0-0.2) mg/dl AST Pending (13-39) U/L ALT Pending (7-52) U/L Alkaline Phosphatase Pending (34-104) U/L Total Protein Pending (6.0-8.3) gm/dl Albumin Pending (3.4-5.0) gm/dl Globulin Pending (2.5-4.0) gm/dl Albumin/Globulin Ratio Pending (0.9-2) Lipase (11-82) U/L Procalcitonin (0-0.5) ng/ml Urine Color Urine Appearance (Clear) Urine pH (4.5-7.5) Ur Specific [place] (1.000-1.030) Urine Protein (Negative) Urine Glucose (UA) (Negative) Urine Ketones (Negative) Urine Blood (Negative) Urine Nitrite (Negative) Urine Bilirubin (Negative) Urine Urobilinogen (Negative) Ur Leukocyte Esterase (Negative) Urine WBC (Auto) (0-5) /hpf Urine RBC (Auto) (0-4) /hpf U Hyaline Cast (Auto) (0-5) /lpf U Epithel Cells (Auto) (0-5) /lpf Urine Bacteria (Auto) (Negative) Urine Crystals Calcium Oxalate Crystal (None Prsent) Urine Mucus (None Prsent) SARS-CoV-2, RNA, NAAT NEGATIVE (NEGATIVE) Flow Cytometry Comment 10/08/22 10/08/22 10/08/22 Range/Units 16:13 16:13 11:50 WBC (4.8-10.8) K/ul RBC (4.20-5.40) M/uL Hgb (12.0-16.0) g/dl Hct (37.0-47.0) % MCV (80.0-100.0) fL MCH (25.0-34.0) pg MCHC (32.0-36.0) g/dL RDW Std Deviation (36.4-46.3) fL RDW Coeff of [place]rystal (11.5-14.5) % Plt Count (130-400) K/uL MPV (9.4-12.4) fL Immature Gran % (Auto) % Neut % (Auto) % Lymph % (Auto) % [place] % (Auto) % Eos % (Auto) % Baso % (Auto) % Neut # (Auto) (1.40-6.50) K/uL Lymph # (Auto) (1.2-3.4) K/uL [place] # (Auto) (0.11-0.59) K/uL Eos # (Auto) (0-0.50) K/uL Baso # (Auto) (0-0.2) K/uL Immature Gran # (Auto) (0.01-0.20) K/uL Blood Smear Review Sodium (136-145) mmol/L Potassium (3.5-5.1) mmol/L Chloride (98-107) mmol/L Carbon Dioxide (21-32) mmol/L Anion Gap (3-11) BUN (6-23) mg/dl Creatinine (0.6-1.2) mg/dl Est Cr Clr Drug Dosing Est GFR ( Amer) ml/min Est GFR (Non-Af Amer) ml/min BUN/Creatinine Ratio (10-20) Glucose (70-99(Fasting)) mg/dl Lactate 0.7 (0.4-2.0) mmol/L Calcium (8.5-10.1) mg/dl Magnesium Total Bilirubin (0.2-1.0) mg/dl Direct Bilirubin (0-0.2) mg/dl AST (13-39) U/L ALT (7-52) U/L Alkaline Phosphatase (34-104) U/L Total Protein (6.0-8.3) gm/dl Albumin (3.4-5.0) gm/dl Globulin (2.5-4.0) gm/dl Albumin/Globulin Ratio (0.9-2) Lipase (11-82) U/L Procalcitonin < 0.05 (0-0.5) ng/ml Urine Color Dark Yellow Urine Appearance Cloudy A (Clear) Urine pH 5.5 (4.5-7.5) Ur Specific [place] 1.029 (1.000-1.030) Urine Protein 2+ H (Negative) Urine Glucose (UA) Negative (Negative) Urine Ketones 1+ H (Negative) Urine Blood Negative (Negative) Urine Nitrite Positive A (Negative) Urine Bilirubin 1+ H (Negative) Urine Urobilinogen Negative (Negative) Ur Leukocyte Esterase Trace H (Negative) Urine WBC (Auto) 1-5 (0-5) /hpf Urine RBC (Auto) 0-4 (0-4) /hpf U Hyaline Cast (Auto) 1-5 (0-5) /lpf U Epithel Cells (Auto) >30 H (0-5) /lpf Urine Bacteria (Auto) Negative (Negative) Urine Crystals Not Reportable Calcium Oxalate Crystal Present A (None Prsent) Urine Mucus Present A (None Prsent) SARS-CoV-2, RNA, NAAT (NEGATIVE) Flow Cytometry Comment 10/08/22 10/08/22 10/08/22 Range/Units 11:23 11:23 11:23 WBC (4.8-10.8) K/ul RBC (4.20-5.40) M/uL Hgb (12.0-16.0) g/dl Hct (37.0-47.0) % MCV (80.0-100.0) fL MCH (25.0-34.0) pg MCHC (32.0-36.0) g/dL RDW Std Deviation (36.4-46.3) fL RDW Coeff of [place]rystal (11.5-14.5) % Plt Count (130-400) K/uL MPV (9.4-12.4) fL Immature Gran % (Auto) % Neut % (Auto) % Lymph % (Auto) % [place] % (Auto) % Eos % (Auto) % Baso % (Auto) % Neut # (Auto) (1.40-6.50) K/uL Lymph # (Auto) (1.2-3.4) K/uL [place] # (Auto) (0.11-0.59) K/uL Eos # (Auto) (0-0.50) K/uL Baso # (Auto) (0-0.2) K/uL Immature Gran # (Auto) (0.01-0.20) K/uL Blood Smear Review Sodium 140 (136-145) mmol/L Potassium 3.5 (3.5-5.1) mmol/L Chloride 100 (98-107) mmol/L Carbon Dioxide 33 H (21-32) mmol/L Anion Gap 7 (3-11) BUN 23 (6-23) mg/dl Creatinine 0.94 (0.6-1.2) mg/dl Est Cr Clr Drug Dosing Not Reportable Est GFR ( Amer) 74.3 ml/min Est GFR (Non-Af Amer) 64.1 ml/min BUN/Creatinine Ratio 24.5 H (10-20) Glucose 115 H (70-99(Fasting)) mg/dl Lactate (0.4-2.0) mmol/L Calcium 11.5 H (8.5-10.1) mg/dl Magnesium Total Bilirubin 1.4 H (0.2-1.0) mg/dl Direct Bilirubin 0.2 (0-0.2) mg/dl AST 19 (13-39) U/L ALT 22 (7-52) U/L Alkaline Phosphatase 57 (34-104) U/L Total Protein 6.7 (6.0-8.3) gm/dl Albumin 4.4 (3.4-5.0) gm/dl Globulin 2.3 L (2.5-4.0) gm/dl Albumin/Globulin Ratio 1.9 (0.9-2) Lipase 34 (11-82) U/L Procalcitonin (0-0.5) ng/ml Urine Color Urine Appearance (Clear) Urine pH (4.5-7.5) Ur Specific [place] (1.000-1.030) Urine Protein (Negative) Urine Glucose (UA) (Negative) Urine Ketones (Negative) Urine Blood (Negative) Urine Nitrite (Negative) Urine Bilirubin (Negative) Urine Urobilinogen (Negative) Ur Leukocyte Esterase (Negative) Urine WBC (Auto) (0-5) /hpf Urine RBC (Auto) (0-4) /hpf U Hyaline Cast (Auto) (0-5) /lpf U Epithel Cells (Auto) (0-5) /lpf Urine Bacteria (Auto) (Negative) Urine Crystals Calcium Oxalate Crystal (None Prsent) Urine Mucus (None Prsent) SARS-CoV-2, RNA, NAAT (NEGATIVE) Flow Cytometry Comment Pending 10/08/22 Range/Units 11:23 WBC 24.50 H (4.8-10.8) K/ul RBC 6.00 H (4.20-5.40) M/uL Hgb 18.5 H (12.0-16.0) g/dl Hct 52.6 H (37.0-47.0) % MCV 87.7 (80.0-100.0) fL MCH 30.8 (25.0-34.0) pg MCHC 35.2 (32.0-36.0) g/dL RDW Std Deviation 45.1 (36.4-46.3) fL RDW Coeff of [place] 14.4 (11.5-14.5) % Plt Count 384 (130-400) K/uL MPV 9.1 L (9.4-12.4) fL Immature Gran % (Auto) 2.4 % Neut % (Auto) 65.0 % Lymph % (Auto) 24.9 % [place] % (Auto) 6.1 % Eos % (Auto) 1.2 % Baso % (Auto) 0.4 % Neut # (Auto) 15.93 H (1.40-6.50) K/uL Lymph # (Auto) 6.09 H (1.2-3.4) K/uL [place] # (Auto) 1.50 H (0.11-0.59) K/uL Eos # (Auto) 0.29 (0-0.50) K/uL Baso # (Auto) 0.11 (0-0.2) K/uL Immature Gran # (Auto) 0.58 H (0.01-0.20) K/uL Blood Smear Review Sodium (136-145) mmol/L Potassium (3.5-5.1) mmol/L Chloride (98-107) mmol/L Carbon Dioxide (21-32) mmol/L Anion Gap (3-11) BUN (6-23) mg/dl Creatinine (0.6-1.2) mg/dl Est Cr Clr Drug Dosing Est GFR ( Amer) ml/min Est GFR (Non-Af Amer) ml/min BUN/Creatinine Ratio (10-20) Glucose (70-99(Fasting)) mg/dl Lactate (0.4-2.0) mmol/L Calcium (8.5-10.1) mg/dl Magnesium Total Bilirubin (0.2-1.0) mg/dl Direct Bilirubin (0-0.2) mg/dl AST (13-39) U/L ALT (7-52) U/L Alkaline Phosphatase (34-104) U/L Total Protein (6.0-8.3) gm/dl Albumin (3.4-5.0) gm/dl Globulin (2.5-4.0) gm/dl Albumin/Globulin Ratio (0.9-2) Lipase (11-82) U/L Procalcitonin (0-0.5) ng/ml Urine Color Urine Appearance (Clear) Urine pH (4.5-7.5) Ur Specific [place] (1.000-1.030) Urine Protein (Negative) Urine Glucose (UA) (Negative) Urine Ketones (Negative) Urine Blood (Negative) Urine Nitrite (Negative) Urine Bilirubin (Negative) Urine Urobilinogen (Negative) Ur Leukocyte Esterase (Negative) Urine WBC (Auto) (0-5) /hpf Urine RBC (Auto) (0-4) /hpf U Hyaline Cast (Auto) (0-5) /lpf U Epithel Cells (Auto) (0-5) /lpf Urine Bacteria (Auto) (Negative) Urine Crystals Calcium Oxalate Crystal (None Prsent) Urine Mucus (None Prsent) SARS-CoV-2, RNA, NAAT (NEGATIVE) Flow Cytometry Comment
[2022-10-09] MEDS ORDERED: POLYETHYLENE (MIRALAX) 17 GM PACK NG ONE (11:15)
[2022-10-09] MEDS: ACETAMINOPHEN 1,000 MG/100 ML VIAL IV SCH ×2 (11:19→17:32)
[2022-10-09] MEDS: PANTOprazole 40 MG in SYRINGE 0 ML IV SCH (11:20)
[2022-10-09 11:59] LABS: Albumin Globulin Ratio 1.9 (0.9-2); Albumin Level 3.5 gm/dl (3.4-5.0); BUN Creatinine Ratio 35.7 (10-20); Bilirubin,Total 1.1 mg/dl (0.2-1.0); Calcium 9.2 mg/dl (8.5-10.1); Creatinine Clr Calc Pharmacy 68.3 ml/min; Est GFR (African American) 106.1 ml/min; Est GFR (Non-African American) 91.6 ml/min; Globulin 1.8 gm/dl (2.5-4.0); Magnesium 2.1 mg/dl (1.7-2.4); Potassium 3.7 mmol/L (3.5-5.1); Total Protein 5.3 gm/dl (6.0-8.3)
--- NOTE | 2022-10-09 13:21 | XRay Report ---
KUB CLINICAL HISTORY: Small bowel obstruction. COMPARISON STUDY: CT of the abdomen and pelvis and KUB October 08, 2022. FINDINGS: Nasogastric tube is coiled within the stomach. The tip projects over the gastric cardia. Mu ltiple loops of mildly dilated small bowel measure up to 3.2 cm in caliber. There has been interval i ncrease in gas within the colon and rectum. No evidence for free air on this supine exam. IMPRESSION: Findings suggestive of a persistent, but likely mildly improving, small bowel obstructio n. ACT 112: Negative or not required by law. Electronically signed by: Jay Castillo M.D. 10/09/2022 1:20 PM
--- NOTE | 2022-10-09 14:09 | Hospitalist Progress Note ---
Date of Service October 09, 2022 Assessment & Plan (1) SBO (small bowel obstruction): (2) Leukocytosis: (3) Lymphocytosis: (4) Hypercalcemia: (5) Emphysema of lung: (6) Hypertension: Plan This is a 66-year-old female who has a significant past medical history of HTN, IBS, insomnia, BEAN, DDD, Fuchs syndrome II right, history of tobacco abuse who presents to ED secondary to abdominal pain, nausea, vomiting x1 day. Small bowel obstruction Patient with previous abdominal surgery x3, partial hysterectomy and appendectomy likely on basis of adhesions Admit to medical CT abdomen and pelvis shows SBO with transition point in right pelvis; likely due to adhension. KUB today shows persistent but likely mildly improving SBO Plan: General surgery on board. Treat conservatively for now N.p.o., NG tube to LIS D5 LR at 80cc/hr. IV APAP For mild pain, 2mg IV morphine mod pain, 4mg IV morphine severe pain IV PPI for now repeat KUB in am c scope 06/26 reviewed 4 polyps removed tubular adenoma Leukocytosis Absent lymphocytosis May be reactive in setting of small bowel obstruction and underlying dehydration; however absolute lymphocytosis concerning Peripheral blood smear reviewed and sent for flow cytometry for further eval will have follow up with PCP along with hematology referral discussed with patient Hypercalcemia Ca 11.5 > 9.2 improvement with hydration. Dehydration in setting of SBO, vomiting continue IVF Tobacco abuse hx Emphysema on imaging continue nicotine patch encourage cessation procalcitonin <0.05 CT chest ? LLL pneumonitis, pt recently completed course of Augmentin. No antibiotics for now. Abnormal UA + nitrites, leuks, no bacturia asymptomatic culture pending; no indication for antibiotics for asymptomatic bacteriuria. HTN on atenolol-chlorthalidone hold for now in setting of NPO BP 123/78, monitor IBS-C on linzess and colace as OP DVT ppx: SQ Heparin Dispo: Med/surg FULL CODE PCP: Yeimy Admission and Anticipated Discharge Date Admission Date: October 08, 2022 Subjective Patient seen and examined at bedside. She is passing flatus; abdomen pain has decreased. NG tube in place. Review of Systems Review of Systems: All systems reviewed & are unremarkable except as noted in Subjective Physical Exam Physical Exam: Constitutional: WD/WN, vitals as above, NAD, sitting up in bed, pleasant, conversing easily Respiratory: normal respiratory effort, lungs clear to auscultation, no wheeze, rales, rhonchi. Normal insp/exp effort, no accessory muscle use Cardiovascular: RRR, no murmur, no edema Vessels: no JVD or carotid bruit Chest: normal inspection of chest Abdomen: soft, non-distended. hypoactive bowel sounds. Musculoskeletal: no cyanosis or clubbing, extremities motor strength 5/5 Skin: no rashes, warm and dry normal turgor Neurologic: PERRL, EOMI, accommodation nl, no face palsy, no dysarthria CN's II- XI intact bilaterally and moves all extremities Psychiatric: A+Ox3, euthymic affect Lymphatic: no cervical or axillary lymphadenopathy : deferred Results & Data Results & Data ([facility]) Vital Signs (Past 12 Hours) Vital Signs Temp Pulse Resp BP Pulse Ox O2 Del Method 10/09/22 08:33 36.5 C 77 15 130/78 95 Room Air Laboratory Results Laboratory Results WBC 15.88 K/ul (4.8-10.8) H 10/09/22 09:12 RBC 4.77 M/uL (4.20-5.40) 10/09/22 09:12 Hgb 14.8 g/dl (12.0-16.0) D 10/09/22 09:12 Hct 43.1 % (37.0-47.0) 10/09/22 09:12 MCV 90.4 fL (80.0-100.0) 10/09/22 09:12 MCH 31.0 pg (25.0-34.0) 10/09/22 09:12 MCHC 34.3 g/dL (32.0-36.0) 10/09/22 09:12 RDW Std Deviation 48.1 fL (36.4-46.3) H 10/09/22 09:12 RDW Coeff of Chrystal 14.6 % (11.5-14.5) H 10/09/22 09:12 Plt Count 308 K/uL (130-400) 10/09/22 09:12 MPV 9.5 fL (9.4-12.4) 10/09/22 09:12 Immature Gran % (Auto) 0.6 % 10/09/22 09:12 Neut % (Auto) 56.7 % 10/09/22 09:12 Lymph % (Auto) 35.1 % 10/09/22 09:12 [place] % (Auto) 5.4 % 10/09/22 09:12 Eos % (Auto) 1.8 % 10/09/22 09:12 Baso % (Auto) 0.4 % 10/09/22 09:12 Neut # (Auto) 9.02 K/uL (1.40-6.50) H 10/09/22 09:12 Lymph # (Auto) 5.57 K/uL (1.2-3.4) H 10/09/22 09:12 [place] # (Auto) 0.85 K/uL (0.11-0.59) H 10/09/22 09:12 Eos # (Auto) 0.29 K/uL (0-0.50) 10/09/22 09:12 Baso # (Auto) 0.06 K/uL (0-0.2) 10/09/22 09:12 Immature Gran # (Auto) 0.09 K/uL (0.01-0.20) 10/09/22 09:12 Blood Smear Review 10/08/22 11:23 Sodium 144 mmol/L (136-145) 10/09/22 09:12 Potassium 3.7 mmol/L (3.5-5.1) 10/09/22 09:12 Chloride 109 mmol/L (98-107) H 10/09/22 09:12 Carbon Dioxide 28 mmol/L (21-32) 10/09/22 09:12 Anion Gap 7 (3-11) 10/09/22 09:12 BUN 25 mg/dl (6-23) H 10/09/22 09:12 Creatinine 0.70 mg/dl (0.6-1.2) 10/09/22 09:12 Est Cr Clr Drug Dosing 68.3 ml/min 10/09/22 09:12 Est GFR ( Amer) 106.1 ml/min 10/09/22 09:12 Est GFR (Non-Af Amer) 91.6 ml/min 10/09/22 09:12 BUN/Creatinine Ratio 35.7 (10-20) H 10/09/22 09:12 Glucose 81 mg/dl (70-99(Fasting)) 10/09/22 09:12 Lactate 0.7 mmol/L (0.4-2.0) 10/08/22 16:13 Calcium 9.2 mg/dl (8.5-10.1) D 10/09/22 09:12 Magnesium 2.1 mg/dl (1.7-2.4) 10/09/22 09:12 Total Bilirubin 1.1 mg/dl (0.2-1.0) H 10/09/22 09:12 Direct Bilirubin 0.2 mg/dl (0-0.2) 10/08/22 11:23 AST 17 U/L (13-39) 10/09/22 09:12 ALT 16 U/L (7-52) 10/09/22 09:12 Alkaline Phosphatase 41 U/L (34-104) 10/09/22 09:12 Total Protein 5.3 gm/dl (6.0-8.3) L D 10/09/22 09:12 Albumin 3.5 gm/dl (3.4-5.0) 10/09/22 09:12 Globulin 1.8 gm/dl (2.5-4.0) L 10/09/22 09:12 Albumin/Globulin Ratio 1.9 (0.9-2) 10/09/22 09:12 Lipase 34 U/L (11-82) 10/08/22 11:23 Procalcitonin < 0.05 ng/ml (0-0.5) 10/08/22 16:13 Urine Color Dark Yellow 10/08/22 11:50 Urine Appearance Cloudy (Clear) A 10/08/22 11:50 Urine pH 5.5 (4.5-7.5) 10/08/22 11:50 Ur Specific [place] 1.029 (1.000-1.030) 10/08/22 11:50 Urine Protein 2+ (Negative) H 10/08/22 11:50 Urine Glucose (UA) Negative (Negative) 10/08/22 11:50 Urine Ketones 1+ (Negative) H 10/08/22 11:50 Urine Blood Negative (Negative) 10/08/22 11:50 Urine Nitrite Positive (Negative) A 10/08/22 11:50 Urine Bilirubin 1+ (Negative) H 10/08/22 11:50 Urine Urobilinogen Negative (Negative) 10/08/22 11:50 Ur Leukocyte Esterase Trace (Negative) H 10/08/22 11:50 Urine WBC (Auto) 1-5 /hpf (0-5) 10/08/22 11:50 Urine RBC (Auto) 0-4 /hpf (0-4) 10/08/22 11:50 U Hyaline Cast (Auto) 1-5 /lpf (0-5) 10/08/22 11:50 U Epithel Cells (Auto) >30 /lpf (0-5) H 10/08/22 11:50 Urine Bacteria (Auto) Negative (Negative) 10/08/22 11:50 Urine Crystals Not Reportable 10/08/22 11:50 Calcium Oxalate Crystal Present (None Prsent) A 10/08/22 11:50 Urine Mucus Present (None Prsent) A 10/08/22 11:50 SARS-CoV-2, RNA, NAAT NEGATIVE (NEGATIVE) 10/08/22 18:10 Impressions Abdomen/Pelvis CT 10/08/22 12:22 CT SCAN OF THE ABDOMEN AND PELVIS WITH IV CONTRAST CLINICAL HISTORY: Periumbilical abdominal pain. Nausea and vomiting. COMPARISON STUDY: No priors. TECHNIQUE: Following the IV administration of 90 cc of Optiray 350, CT scan of the abdomen and pelvis is performed from the lung bases to the proximal femora. Images are reviewed in the axial, sagittal, and coronal planes. IV contrast was administered without complication. A dose lowering technique was utilized adhering to the principles of ALARA. CT DOSE: 306.84 mGy.cm FINDINGS: Lung bases: The heart is normal in size and without pericardial effusion. There are coronary artery calcifications. Emphysematous change is suggested. There is minimal patchy groundglass consolidation in the left lower lobe. Parenchymal scarring is seen in the right lower lobe with cystic change. There are impacted bronchi in the right lower lobe. No pleural effusion is identified. Liver: The contrast-enhanced liver is top normal in size. The liver demonstrates diffusely diminished attenuation indicating steatosis. There is no intrahepatic biliary ductal dilatation. The hepatic veins and portal veins are patent. Gallbladder: Adenomyomatosis is suggested in the fundal region. Spleen: Normal in size and attenuation. Pancreas: Unremarkable. Adrenal glands: Unremarkable. Kidneys: The contrast enhanced kidneys are normal in size and without hydronephrosis. The kidneys enhance symmetrically. A 1.5 cm cyst is seen in the left kidney. Additional punctate cortical hypodensities also likely represent cysts but are too small for definitive characterization. Abdominal vasculature: The abdominal aorta is normal in course and caliber noting advanced atherosclerotic calcification. Bowel: The small bowel loops are distended and fluid-filled measuring up to 3.3 cm diameter. The distal small bowel and colon are decompressed, and the appearance is consistent with a bowel obstruction. A transition point is identified in the right pelvis involving the ileum as on image #317 and this is likely in the basis of adhesions. Interloop fluid is noted. The small bowel loops above the transition point are fecalized. There is no pneumatosis intestinalis or portal venous gas. No focally thick-walled bowel loops are seen. The appendix is not identified and reported surgically absent. Peritoneum: No intraperitoneal free air is seen. Trace free fluid is noted in the pelvis. There is a small fat-containing umbilical hernia. Lymphadenopathy: None. Pelvic viscera: The bladder is decompressed and not well assessed. The uterus is surgically absent. No adnexal lesion is seen. Skeletal structures: The skeletal structures are osteopenic. There is mild to moderate lumbosacral spondylosis. No lytic or blastic lesions are seen. IMPRESSION: 1. Small bowel obstruction. A transition point is identified in the right pelvis and this is likely on the basis of adhesions. 2. No intraperitoneal free air is identified. No focally thick-walled bowel loops are identified and there is no pneumatosis intestinalis or portal venous gas. 3. There is interloop fluid and trace pelvic ascites. 4. There is minimal patchy groundglass consolidation in the left lower lobe, typical for a mild pneumonitis. Clinical correlation will be required. 5. Suspect emphysema. 6. Additional findings as above. ACT 112: Negative or not required by law. Electronically signed by: Reji Gay M.D. 10/08/2022 1:28 PM Chest X-Ray 10/08/22 16:32 XR chest 1V portable HISTORY: 66 years-old Female sbo acute shortness of breath COMPARISON: CT abdomen and pelvis of same day TECHNIQUE: AP view of the chest FINDINGS: Cardiomediastinal and hilar silhouettes are within normal limits. Pulmonary emphysema. No pneumothorax, large pleural effusion or overt pulmonary edema. Mild subsegmental right basilar densities are again noted. Cystic focus of the right lower lobe is better seen on the comparison exam. Minimal interstitial coarsening of the left lung base. Degenerative changes of the shoulders and spine. IMPRESSION: 1. Mild right basilar atelectasis/scarring. 2. The subtle groundglass densities of the left lower lobe described on the CT study of same day are not well visualized by radiography. 3. Mild pulmonary emphysema. ACT 112: Negative or not required by law. The above report was generated using voice recognition software. It may contain grammatical, syntax or spelling errors. Electronically signed by: Pb Felder M.D. 10/08/2022 5:00 PM KUB X-Ray 10/09/22 08:00 KUB CLINICAL HISTORY: Small bowel obstruction. COMPARISON STUDY: CT of the abdomen and pelvis and KUB October 08, 2022. FINDINGS: Nasogastric tube is coiled within the stomach. The tip projects over the gastric cardia. Multiple loops of mildly dilated small bowel measure up to 3.2 cm in caliber. There has been interval increase in gas within the colon and rectum. No evidence for free air on this supine exam. IMPRESSION: Findings suggestive of a persistent, but likely mildly improving, small bowel obstruction. ACT 112: Negative or not required by law. Electronically signed by: Jay Castillo M.D. 10/09/2022 1:20 PM
[2022-10-09] MEDS: D5W AND LACTATED RINGERS 1,000 ML IV SCH (14:40)
[2022-10-10] MEDS: ACETAMINOPHEN 1,000 MG/100 ML VIAL IV SCH ×3 (01:52→17:23)
[2022-10-10] MEDS: D5W AND LACTATED RINGERS 1,000 ML IV SCH ×2 (01:53→13:45)
[2022-10-10] MEDS: HEPARIN SOD 5,000 UNIT/0.5 ML VIAL SQ SCH ×3 (05:41→21:23)
--- NOTE | 2022-10-10 06:00 | Surgery Progress Note ---
Date of Service October 10, 2022 Assessment & Plan (1) SBO (small bowel obstruction): Plan: Patient has been admitted on the hospitalist service. We recommend proceeding as follows: We will continue conservative management. Continue NG tube and n.p.o. status for the present time. (May consider an NG tube clamping trial later today) Continue ambulation in the hallway which patient says she has been doing Check a.m. labs when available Continue IV fluid for hydration while n.p.o. Admission and Anticipated Discharge Date Admission Date: October 08, 2022 Supervising Physician Co-Signing Physician Notes I personally saw and evaluated the patient with Jona Stevenson PA-C and agree with the assessment and plan. 66-year-old female with small bowel obstruction She is passing flatus, will clamp trial with NG tube with possible removal later Continue encourage ambulation We will continue to follow Subjective Patient is resting comfortably in bed. She notes abdominal pain is markedly improved since admission. She is passing flatus and did report having a small bowel movement last night. She also notes that her abdomen is less distended and that was noted at the time of admission. Physical Exam Gastrointestinal (Abdomen): Abdomen is soft and nonrigid with hypoactive bowel sounds. There is no rebound tenderness or guarding and minimal pain with p alpation to the left of her umbilicus. NG tube is in place which is drained approximately 200 cc over the last shift. Results & Data ([facility]) Vital Signs (Past 12 Hours) Vital Signs Temp Pulse Resp BP Pulse Ox O2 Del Method 10/09/22 21:41 36.5 C 79 16 119/64 94 Room Air PG Care Time/CCT Total # of Minutes Spent Total Time Spent with Patient: Total time spent is greater than 50% in coordination of care (as documented) at patient's floor/unit and/or counseling patient: Coding Level of Care Code 79750 SUB INP/OBS CARE 25MIN Diagnoses SBO (small bowel obstruction) K56.609
[2022-10-10 07:22] LABS: Basophils # (auto) 0.04 K/uL (0-0.2); Basophils % (auto) 0.4 %; Eosinophils # (auto) 0.26 K/uL (0-0.50); Eosinophils % (auto) 2.3 %; Hematocrit (blood only) 40.6 % (37.0-47.0); Hemoglobin 14.1 g/dl (12.0-16.0); Immature Granulocytes # (auto) 0.04 K/uL (0.01-0.20); Immature Granulocytes % (auto) 0.4 %; Lymphocytes # (auto) 4.38 K/uL (1.2-3.4); Lymphocytes % (auto) 39.5 %; Mean Corpuscular Hemoglobin 30.7 pg (25.0-34.0); Mean Corpuscular Hgb Conc 34.7 g/dL (32.0-36.0); Mean Corpuscular Volume 88.5 fL (80.0-100.0); Mean Platelet Volume 9.4 fL (9.4-12.4); Monocytes % (auto) 5.4 %; Neutrophils # (auto) 5.78 K/uL (1.40-6.50); Platelet Count 298 K/uL (130-400); RDW Coefficient of Variation 14.2 % (11.5-14.5); RDW Standard Deviation 45.7 fL (36.4-46.3); Red Blood Count 4.59 M/uL (4.20-5.40)
[2022-10-10 07:48] LABS: BUN Creatinine Ratio 25.4 (10-20); Calcium 9.7 mg/dl (8.5-10.1); Creatinine Clr Calc Pharmacy 71.3 ml/min; Est GFR (African American) 107.7 ml/min; Est GFR (Non-African American) 92.9 ml/min; Potassium 3.4 mmol/L (3.5-5.1)
[2022-10-10] MEDS: NICOTINE 21 MG/24 HR TDSY TD SCH (08:33)
--- NOTE | 2022-10-10 09:06 | XRay Report ---
KUB HISTORY: Acute generalized abdominal pain with reported small bowel obstruction Follow up on SBO COMPARISON: 03/23/2021 FINDINGS: Distal tip of enteric tube is coiled within the stomach, distal tip in the region of the ga stric cardia/gastroesophageal junction. Mildly dilated air-filled loops of small bowel measure up to 3 cm, improved from the prior study. Air within the large bowel also noted along with mild to moderat e colonic fecal retention. No renal calculi. No ureteral calculi. No pneumoperitoneum or pneumatosis . Mid lumbar dextroscoliosis with multilevel degenerative changes. No fracture. IMPRESSION: 1. Distal tip of enteric tube is projected superiorly near the gastric cardia. 2. Persistent yet improving small bowel obstruction. ACT 112: Negative or not required by law. The above report was generated using voice recognition software. It may contain grammatical, syntax o r spelling errors. Electronically signed by: Pb Felder M.D. 10/10/2022 9:03 AM
[2022-10-10] MEDS: PANTOprazole 40 MG in SYRINGE 0 ML IV SCH (11:19)
--- NOTE | 2022-10-10 12:17 | Hospitalist Progress Note ---
Date of Service October 10, 2022 Assessment & Plan (1) SBO (small bowel obstruction): (2) Leukocytosis: (3) Lymphocytosis: (4) Hypercalcemia: (5) Emphysema of lung: (6) Hypertension: Plan This is a 66-year-old female who has a significant past medical history of HTN, IBS, insomnia, BEAN, DDD, Fuchs syndrome II right, history of tobacco abuse who presents to ED secondary to abdominal pain, nausea, vomiting x1 day. Small bowel obstruction Patient with previous abdominal surgery x3, partial hysterectomy and appendectomy likely on basis of adhesions CT abdomen and pelvis shows SBO with transition point in right pelvis; likely due to adhension. KUB today shows persistent but likely mildly improving SBO Plan: General surgery on board. Treat conservatively for now NG tube clamped; will see residual and remove NG tube; advance diet as tolerated. IV APAP For mild pain, 2mg IV morphine mod pain, 4mg IV morphine severe pain IV PPI for now repeat KUB in am c scope 06/26 reviewed 4 polyps removed tubular adenoma Leukocytosis Absent lymphocytosis May be reactive in setting of small bowel obstruction and underlying dehydration; however absolute lymphocytosis concerning Peripheral blood smear reviewed and sent for flow cytometry for further eval will have follow up with PCP along with hematology referral. Patient will have PCP follow-up on October 16. discussed with patient Hypercalcemia Ca 11.5 > 9.2 improvement with hydration. Dehydration in setting of SBO, vomiting continue IVF Tobacco abuse hx Emphysema on imaging continue nicotine patch encourage cessation procalcitonin <0.05 CT chest ? LLL pneumonitis, pt recently completed course of Augmentin. No antibiotics for now. Abnormal UA + nitrites, leuks, no bacturia asymptomatic Urine culture shows no growth. HTN on atenolol-chlorthalidone hold for now in setting of NPO BP 123/78, monitor IBS-C on linzess and colace as OP DVT ppx: SQ Heparin Dispo: Med/surg FULL CODE PCP: [facility] Admission and Anticipated Discharge Date Admission Date: October 08, 2022 Subjective Patient seen and examined at bedside. NG tube output overnight was 200 cc. Patient is passing flatus; no bowel movement yet. No nausea or vomiting. Review of Systems Review of Systems: All systems reviewed & are unremarkable except as noted in Subjective Physical Exam Physical Exam: Constitutional: WD/WN, vitals as above, NAD, sitting up in bed, pleasant, conversing easily Respiratory: normal respiratory effort, lungs clear to auscultation, no wheeze, rales, rhonchi. Normal insp/exp effort, no accessory muscle use Cardiovascular: RRR, no murmur, no edema Vessels: no JVD or carotid bruit Chest: normal inspection of chest Abdomen: soft, non-distended. Nontender. Bowel sound present. Musculoskeletal: no cyanosis or clubbing, extremities motor strength 5/5 Skin: no rashes, warm and dry normal turgor Neurologic: PERRL, EOMI, accommodation nl, no face palsy, no dysarthria CN's II- XI intact bilaterally and moves all extremities Psychiatric: A+Ox3, euthymic affect Lymphatic: no cervical or axillary lymphadenopathy : deferred Results & Data Results & Data ([facility]) Vital Signs (Past 12 Hours) Vital Signs Temp Pulse Resp BP Pulse Ox O2 Del Method 10/10/22 09:29 146/74 H 10/10/22 07:45 36.5 C 83 17 168/69 H 96 Room Air Laboratory Results Laboratory Results WBC 11.10 K/ul (4.8-10.8) H 10/10/22 06:37 RBC 4.59 M/uL (4.20-5.40) 10/10/22 06:37 Hgb 14.1 g/dl (12.0-16.0) 10/10/22 06:37 Hct 40.6 % (37.0-47.0) 10/10/22 06:37 MCV 88.5 fL (80.0-100.0) 10/10/22 06:37 MCH 30.7 pg (25.0-34.0) 10/10/22 06:37 MCHC 34.7 g/dL (32.0-36.0) 10/10/22 06:37 RDW Std Deviation 45.7 fL (36.4-46.3) 10/10/22 06:37 RDW Coeff of Chrystal 14.2 % (11.5-14.5) 10/10/22 06:37 Plt Count 298 K/uL (130-400) 10/10/22 06:37 MPV 9.4 fL (9.4-12.4) 10/10/22 06:37 Immature Gran % (Auto) 0.4 % 10/10/22 06:37 Neut % (Auto) 52.0 % 10/10/22 06:37 Lymph % (Auto) 39.5 % 10/10/22 06:37 Hughes % (Auto) 5.4 % 10/10/22 06:37 Eos % (Auto) 2.3 % 10/10/22 06:37 Baso % (Auto) 0.4 % 10/10/22 06:37 Neut # (Auto) 5.78 K/uL (1.40-6.50) 10/10/22 06:37 Lymph # (Auto) 4.38 K/uL (1.2-3.4) H 10/10/22 06:37 Hughes # (Auto) 0.60 K/uL (0.11-0.59) H 10/10/22 06:37 Eos # (Auto) 0.26 K/uL (0-0.50) 10/10/22 06:37 Baso # (Auto) 0.04 K/uL (0-0.2) 10/10/22 06:37 Immature Gran # (Auto) 0.04 K/uL (0.01-0.20) 10/10/22 06:37 Blood Smear Review 10/08/22 11:23 Sodium 141 mmol/L (136-145) 10/10/22 06:37 Potassium 3.4 mmol/L (3.5-5.1) L 10/10/22 06:37 Chloride 107 mmol/L (98-107) 10/10/22 06:37 Carbon Dioxide 31 mmol/L (21-32) 10/10/22 06:37 Anion Gap 3 (3-11) 10/10/22 06:37 BUN 17 mg/dl (6-23) 10/10/22 06:37 Creatinine 0.67 mg/dl (0.6-1.2) 10/10/22 06:37 Est Cr Clr Drug Dosing 71.3 ml/min 10/10/22 06:37 Est GFR ( Amer) 107.7 ml/min 10/10/22 06:37 Est GFR (Non-Af Amer) 92.9 ml/min 10/10/22 06:37 BUN/Creatinine Ratio 25.4 (10-20) H 10/10/22 06:37 Glucose 91 mg/dl (70-99(Fasting)) 10/10/22 06:37 Lactate 0.7 mmol/L (0.4-2.0) 10/08/22 16:13 Calcium 9.7 mg/dl (8.5-10.1) 10/10/22 06:37 Magnesium 2.1 mg/dl (1.7-2.4) 10/09/22 09:12 Total Bilirubin 1.1 mg/dl (0.2-1.0) H 10/09/22 09:12 Direct Bilirubin 0.2 mg/dl (0-0.2) 10/08/22 11:23 AST 17 U/L (13-39) 10/09/22 09:12 ALT 16 U/L (7-52) 10/09/22 09:12 Alkaline Phosphatase 41 U/L (34-104) 10/09/22 09:12 Total Protein 5.3 gm/dl (6.0-8.3) L D 10/09/22 09:12 Albumin 3.5 gm/dl (3.4-5.0) 10/09/22 09:12 Globulin 1.8 gm/dl (2.5-4.0) L 10/09/22 09:12 Albumin/Globulin Ratio 1.9 (0.9-2) 10/09/22 09:12 Lipase 34 U/L (11-82) 10/08/22 11:23 Procalcitonin < 0.05 ng/ml (0-0.5) 10/08/22 16:13 Urine Color Dark Yellow 10/08/22 11:50 Urine Appearance Cloudy (Clear) A 10/08/22 11:50 Urine pH 5.5 (4.5-7.5) 10/08/22 11:50 Ur Specific [place] 1.029 (1.000-1.030) 10/08/22 11:50 Urine Protein 2+ (Negative) H 10/08/22 11:50 Urine Glucose (UA) Negative (Negative) 10/08/22 11:50 Urine Ketones 1+ (Negative) H 10/08/22 11:50 Urine Blood Negative (Negative) 10/08/22 11:50 Urine Nitrite Positive (Negative) A 10/08/22 11:50 Urine Bilirubin 1+ (Negative) H 10/08/22 11:50 Urine Urobilinogen Negative (Negative) 10/08/22 11:50 Ur Leukocyte Esterase Trace (Negative) H 10/08/22 11:50 Urine WBC (Auto) 1-5 /hpf (0-5) 10/08/22 11:50 Urine RBC (Auto) 0-4 /hpf (0-4) 10/08/22 11:50 U Hyaline Cast (Auto) 1-5 /lpf (0-5) 10/08/22 11:50 U Epithel Cells (Auto) >30 /lpf (0-5) H 10/08/22 11:50 Urine Bacteria (Auto) Negative (Negative) 10/08/22 11:50 Urine Crystals Not Reportable 10/08/22 11:50 Calcium Oxalate Crystal Present (None Prsent) A 10/08/22 11:50 Urine Mucus Present (None Prsent) A 10/08/22 11:50 SARS-CoV-2, RNA, NAAT NEGATIVE (NEGATIVE) 10/08/22 18:10 Impressions Abdomen/Pelvis CT 10/08/22 12:22 CT SCAN OF THE ABDOMEN AND PELVIS WITH IV CONTRAST CLINICAL HISTORY: Periumbilical abdominal pain. Nausea and vomiting. COMPARISON STUDY: No priors. TECHNIQUE: Following the IV administration of 90 cc of Optiray 350, CT scan of the abdomen and pelvis is performed from the lung bases to the proximal femora. Images are reviewed in the axial, sagittal, and coronal planes. IV contrast was administered without complication. A dose lowering technique was utilized adhering to the principles of ALARA. CT DOSE: 306.84 mGy.cm FINDINGS: Lung bases: The heart is normal in size and without pericardial effusion. There are coronary artery calcifications. Emphysematous change is suggested. There is minimal patchy groundglass consolidation in the left lower lobe. Parenchymal scarring is seen in the right lower lobe with cystic change. There are impacted bronchi in the right lower lobe. No pleural effusion is identified. Liver: The contrast-enhanced liver is top normal in size. The liver demonstrates diffusely diminished attenuation indicating steatosis. There is no intrahepatic biliary ductal dilatation. The hepatic veins and portal veins are patent. Gallbladder: Adenomyomatosis is suggested in the fundal region. Spleen: Normal in size and attenuation. Pancreas: Unremarkable. Adrenal glands: Unremarkable. Kidneys: The contrast enhanced kidneys are normal in size and without hydronephrosis. The kidneys enhance symmetrically. A 1.5 cm cyst is seen in the left kidney. Additional punctate cortical hypodensities also likely represent cysts but are too small for definitive characterization. Abdominal vasculature: The abdominal aorta is normal in course and caliber noting advanced atherosclerotic calcification. Bowel: The small bowel loops are distended and fluid-filled measuring up to 3.3 cm diameter. The distal small bowel and colon are decompressed, and the appearance is consistent with a bowel obstruction. A transition point is identified in the right pelvis involving the ileum as on image #317 and this is likely in the basis of adhesions. Interloop fluid is noted. The small bowel loops above the transition point are fecalized. There is no pneumatosis intestinalis or portal venous gas. No focally thick-walled bowel loops are seen. The appendix is not identified and reported surgically absent. Peritoneum: No intraperitoneal free air is seen. Trace free fluid is noted in the pelvis. There is a small fat-containing umbilical hernia. Lymphadenopathy: None. Pelvic viscera: The bladder is decompressed and not well assessed. The uterus is surgically absent. No adnexal lesion is seen. Skeletal structures: The skeletal structures are osteopenic. There is mild to moderate lumbosacral spondylosis. No lytic or blastic lesions are seen. IMPRESSION: 1. Small bowel obstruction. A transition point is identified in the right pelvis and this is likely on the basis of adhesions. 2. No intraperitoneal free air is identified. No focally thick-walled bowel loops are identified and there is no pneumatosis intestinalis or portal venous gas. 3. There is interloop fluid and trace pelvic ascites. 4. There is minimal patchy groundglass consolidation in the left lower lobe, typical for a mild pneumonitis. Clinical correlation will be required. 5. Suspect emphysema. 6. Additional findings as above. ACT 112: Negative or not required by law. Electronically signed by: Reji Gay M.D. 10/08/2022 1:28 PM Chest X-Ray 10/08/22 16:32 XR chest 1V portable HISTORY: 66 years-old Female sbo acute shortness of breath COMPARISON: CT abdomen and pelvis of same day TECHNIQUE: AP view of the chest FINDINGS: Cardiomediastinal and hilar silhouettes are within normal limits. Pulmonary emphysema. No pneumothorax, large pleural effusion or overt pulmonary edema. Mild subsegmental right basilar densities are again noted. Cystic focus of the right lower lobe is better seen on the comparison exam. Minimal interstitial coarsening of the left lung base. Degenerative changes of the shoulders and spine. IMPRESSION: 1. Mild right basilar atelectasis/scarring. 2. The subtle groundglass densities of the left lower lobe described on the CT study of same day are not well visualized by radiography. 3. Mild pulmonary emphysema. ACT 112: Negative or not required by law. The above report was generated using voice recognition software. It may contain grammatical, syntax or spelling errors. Electronically signed by: Pb Felder M.D. 10/08/2022 5:00 PM KUB X-Ray 10/10/22 07:33 KUB HISTORY: Acute generalized abdominal pain with reported small bowel obstruction Follow up on SBO COMPARISON: 03/23/2021 FINDINGS: Distal tip of enteric tube is coiled within the stomach, distal tip in the region of the gastric cardia/gastroesophageal junction. Mildly dilated air- filled loops of small bowel measure up to 3 cm, improved from the prior study. Air within the large bowel also noted along with mild to moderate colonic fecal retention. No renal calculi. No ureteral calculi. No pneumoperitoneum or pneumatosis. Mid lumbar dextroscoliosis with multilevel degenerative changes. No fracture. IMPRESSION: 1. Distal tip of enteric tube is projected superiorly near the gastric cardia. 2. Persistent yet improving small bowel obstruction. ACT 112: Negative or not required by law. The above report was generated using voice recognition software. It may contain grammatical, syntax or spelling errors. Electronically signed by: Pb Felder M.D. 10/10/2022 9:03 AM
[2022-10-10] MEDS ORDERED: ATENOLOL 25 MG TABLET PO STA (21:26)
[2022-10-11] MEDS: ACETAMINOPHEN 1,000 MG/100 ML VIAL IV SCH (02:13)
--- NOTE | 2022-10-11 05:23 | Surgery Progress Note ---
Date of Service October 11, 2022 Assessment & Plan (1) SBO (small bowel obstruction): Plan: Patient has been admitted on the hospitalist service. We recommend proceeding as follows: NG tube removed yesterday and patient tolerated clears; may consider advancement to full liquids later this morning Ambulation in hallway has been continually encouraged DC to home likely once diet can be advanced further Admission and Anticipated Discharge Date Admission Date: October 08, 2022 Supervising Physician Co-Signing Physician Notes I personally saw and evaluated the patient with Jona Stevenson PA-C and agree with the assessment and plan. 66-year-old female with small bowel obstruction Continues to pass flatus and having minimal abdominal pain Advance to low fiber, if she tolerates can be discharged later today Continue encourage ambulation We will continue to follow Subjective Patient is resting comfortably in bed. She notes that since her NG tube was removed yesterday she has tolerated clears without worsening abdominal pain or nausea or vomiting. She is passing flatus but is not had a bowel movement yet. Physical Exam Gastrointestinal (Abdomen): Abdomen is soft, nonrigid, nondistended with minimal tenderness to palpation. Bowel sounds are present. Results & Data ([facility]) Vital Signs (Past 12 Hours) Vital Signs Temp Pulse Resp BP Pulse Ox O2 Del Method 10/10/22 20:36 36.5 C 70 16 170/78 H 96 Room Air PG Care Time/CCT Total # of Minutes Spent Total Time Spent with Patient: Total time spent is greater than 50% in coordination of care (as documented) at patient's floor/unit and/or counseling patient: Coding Level of Care Code 39054 SUB INP/OBS CARE 09/30MIN Diagnoses SBO (small bowel obstruction) K56.609
[2022-10-11] MEDS: HEPARIN SOD 5,000 UNIT/0.5 ML VIAL SQ SCH (05:28)
[2022-10-11 07:20] LABS: Basophils # (auto) 0.03 K/uL (0-0.2); Basophils % (auto) 0.3 %; Eosinophils # (auto) 0.25 K/uL (0-0.50); Eosinophils % (auto) 2.3 %; Hematocrit (blood only) 40.8 % (37.0-47.0); Hemoglobin 14.1 g/dl (12.0-16.0); Immature Granulocytes # (auto) 0.05 K/uL (0.01-0.20); Immature Granulocytes % (auto) 0.5 %; Lymphocytes # (auto) 3.65 K/uL (1.2-3.4); Mean Corpuscular Hemoglobin 30.6 pg (25.0-34.0); Mean Corpuscular Hgb Conc 34.6 g/dL (32.0-36.0); Mean Corpuscular Volume 88.5 fL (80.0-100.0); Monocytes % (auto) 5.6 %; Neutrophils # (auto) 6.14 K/uL (1.40-6.50); Neutrophils % (auto) 57.3 %; Platelet Count 272 K/uL (130-400); RDW Coefficient of Variation 13.7 % (11.5-14.5); RDW Standard Deviation 44.2 fL (36.4-46.3); Red Blood Count 4.61 M/uL (4.20-5.40); White Blood Count 10.72 K/ul (4.8-10.8)
[2022-10-11] MEDS: NICOTINE 21 MG/24 HR TDSY TD SCH (07:44)
[2022-10-11 07:47] LABS: BUN Creatinine Ratio 14.3 (10-20); Calcium 9.8 mg/dl (8.5-10.1); Creatinine Clr Calc Pharmacy 68.3 ml/min; Est GFR (African American) 106.1 ml/min; Est GFR (Non-African American) 91.6 ml/min; Potassium 3.8 mmol/L (3.5-5.1)
[2022-10-11] MEDS ORDERED: ACETAMINOPHEN 325 MG TAB PO PRN (07:48)
[2022-10-11] MEDS ORDERED: PANTOprazole 40 MG TAB PO SCH (09:00)
[2022-10-11] MEDS ORDERED: ATENOLOL 50 MG TABLET PO SCH (09:00)
[2022-10-11] MEDS ORDERED: ATENOLOL CHLORTHALIDONE PO SCH (09:00)
[2022-10-11] MEDS ORDERED: CHLORTHALIDONE 25 MG TAB PO SCH (09:00)
--- NOTE | 2022-10-11 13:26 | Discharge Summary ---
Date of Service October 11, 2022 Admission HPI Per Admitting Provider This is a 66-year-old female who has a significant past medical history of HTN, IBS, insomnia, BEAN, DDD, Fuchs syndrome II right, history of tobacco abuse who presents to ED secondary to abdominal pain, nausea, vomiting x1 day. In the assistant manager pt hours patient developed gradual periumbilical abdominal pain that was followed by nausea and vomiting. She had 7-8 episodes of dark emesis. Her last episode of emesis was approximately 9 AM. She also complains of periumbilical abdominal pain. Pain was gradual in onset, constant, currently 5 out of 10, waxes and wanes in severity, nothing makes it better and nothing makes it worse. She did have a very small hard bowel movement this morning. She denies melena or bright red blood per rectum. She has history of IBS and therefore suffers from constipation. She takes Linzess and Colace for this. She feels like as of late she has been more constipated despite her current regimen. She denies ever having similar symptoms in the past. She did not try anything for her symptoms at home. She denies fever, chills, sweats, lightheadedness, dizziness, chest pain, shortness of breath, dysuria, increased urgency or frequency with urination, or hematuria. Over the past 2 weeks patient has been suffering for a sinus infection. She was placed on a course of Augmentin as well as prednisone. She completed the Augmentin yesterday and the prednisone has been complete as well. She does have a chronic cough due to her prior history of smoking. She is tobacco free for 1 week and currently using a NicoDerm patch. She denies any productive cough or hemoptysis. In ED patient remained hemodynamically stable. CT abdomen pelvis revealed small bowel obstruction with transition point in the right pelvis likely on the basis of adhesions. There is interloop fluid and trace pelvic ascites. Minimal patchy groundglass consolidation of the left lower lobe, typical for a mild pneumonitis and suspect emphysema. She received IV fluid as well as IV Zosyn while in ED due to possible pneumonia. Admission Exam Per Admitting Provider Constitutional: WD/WN, vitals as above, NAD, sitting up in bed, pleasant, conversing easily Head: Normocephalic, Atraumatic Eyes: PERRL, conjunctivae normal, anicteric sclerae ENMT: external ear and nose normal, oropharynx normal Neck: trachea midline, no thyromegaly normal visual inspection Respiratory: normal respiratory effort, lungs clear to auscultation, no wheeze, rales, rhonchi. Normal insp/exp effort, no accessory muscle use Cardiovascular: RRR, no murmur, no edema Vessels: no JVD or carotid bruit Chest: normal inspection of chest Abdomen: hyperactive bs, soft, tender to palp around umbilicus, no rebound, guarding or rigidity, no hepatosplenomegaly Musculoskeletal: no cyanosis or clubbing, extremities motor strength 5/5 Skin: no rashes, warm and dry normal turgor Neurologic: PERRL, EOMI, accommodation nl, no face palsy, no dysarthria CN's II-XI intact bilaterally and moves all extremities Psychiatric: A+Ox3, euthymic affect Lymphatic: no cervical or axillary lymphadenopathy : deferred Principal Diagnosis Small bowel obstruction High lymphocyte count Discharge Exam Constitutional: WD/WN, vitals as above, NAD, sitting up in bed, pleasant, conversing easily Respiratory: normal respiratory effort, lungs clear to auscultation, no wheeze, rales, rhonchi. Normal insp/exp effort, no accessory muscle use Cardiovascular: RRR, no murmur, no edema Vessels: no JVD or carotid bruit Chest: normal inspection of chest Abdomen: soft, non-distended. Nontender. Bowel sound present. Musculoskeletal: no cyanosis or clubbing, extremities motor strength 5/5 Skin: no rashes, warm and dry normal turgor Neurologic: PERRL, EOMI, accommodation nl, no face palsy, no dysarthria CN's II- XI intact bilaterally and moves all extremities Psychiatric: A+Ox3, euthymic affect Lymphatic: no cervical or axillary lymphadenopathy : deferred Discharge Data Allergies Allergy/AdvReac Type Severity Reaction Status Date / Time No Known Allergies Allergy Unverified 06/20/21 01:48 Consultations 10/08/22 16:01 Consult General Surgery Routine Ordered Studies 10/08/22 12:22 CT abd pelvis IV con only Stat Hospital Course (1) SBO (small bowel obstruction): (2) Leukocytosis: (3) Lymphocytosis: (4) Hypercalcemia: (5) Emphysema of lung: (6) Hypertension: Plan This is a 66-year-old female who has a significant past medical history of HTN, IBS, insomnia, BEAN, DDD, Fuchs syndrome II right, history of tobacco abuse who presents to ED secondary to abdominal pain, nausea, vomiting x1 day. Patient was managed for following conditions during the hospitalization: 1) Small bowel obstruction Patient with previous abdominal surgery x3, partial hysterectomy and appendectomy likely on basis of adhesions CT abdomen and pelvis shows SBO with transition point in right pelvis; likely due to adhension. During the hospitalization, patient was managed conservatively with NG tube placement, IV hydration and pain control. General surgery was consulted and followed her during her hospitalization. Over the course of the hospitalization, patient gradually improved; NG tube was clamped and taken out. Patient tolerated advancement of diet. She was passing gas. Repeat KUB showed improvement in the small bowel obstruction. Patient was discharged home with instruction to follow low fiber diet. 2) Lymphocytosis; Her WBC count on admission was 24,000 with 6000 lymphocytes. Peripheral blood smear was reviewed by pathology; no significant finding were seen. Flow cytometry was sent. During the hospitalization, her leukocytosis improved; WBC on the day of discharge was 10,700. Patient to follow-up with her primary care doctor and obtain hematology referral. All other medication were continued as before. Total Time Total Time Spent Total Time Spent (In Minutes): 40 Total Time Includes: Examination of the Patient, Discharge Planning, Medication Reconciliation, Communication With Other Providers and Other Discharge Plan Discharge Items Patient Disposition: Home - Self-Care Reason For Visit: SBO Discharge Diagnosis: Small bowel obstruction Activity: Resume your previous activity Non-emergency contact: Primary Care Provider Call non-emergency contact if: you have any medication questions and your symptoms worsen Follow-up/Referrals: Julio César Gaffney MD [Primary Care Provider] - (Date & Time 10/16/2022 11:00 AM Provider Julio César Gaffney MD Department Family Medicine [facility] ) Diet: Low Fiber Addtl Attending Provider Instructions: You were admitted to the hospital with small bowel obstruction. Please continue to take low fiber food. Please follow the dietary instruction provided in the pamphlet. When you have presented to the hospital you were found to have high lymphocyte count. Further study are sent by the pathologist to rule out CLL. Please follow up with your primary care doctor and obtain referral with hematology if the test is abnormal or you continue to have high lymphocyte count. Pending Studies at Discharge: Yes Studies:: Gabriele flow lymph/leuko stnd Stand-Alone Forms: My [facility] [address], Smoking Cessation Medications and DC Order Prescriptions: Continued celecoxib 200 mg capsule 200 mg PO DAILY atenolol-chlorthalidone 50-25 mg tablet 1 tab PO DAILY potassium chloride 20 mEq tablet,ER particles/crystals 20 meq PO DAILY bupropion HCl 150 mg tablet extended release 24 hr 150 mg PO DAILY multivitamin [One A Day Vitamin] Tablet 1 tab PO DAILY aspirin [Rakesh Low Dose Aspirin] 81 mg Tablet,Delayed Release (Dr/Ec) 81 mg PO DAILY trazodone 50 mg tablet 50 mg PO HS omeprazole 40 mg capsule,delayed release(DR/EC) 40 mg PO DAILY nicotine [Nicoderm] 21 mg/24 hr Patch 24 Hour 1 patch TRANSDERMAL DAILY flaxseed oil 1,000 mg Capsule 1,000 mg PO DAILY Rx Instructions: administer with a meal docusate sodium [Colace] 100 mg Capsule 100 mg PO DAILY Discontinued Linzess 145 mcg capsule 145 mcg PO DAILYBB Discharge Orders: Discharge Order (Routine); Ordered 10/11/22 Ordered By: Lenny Richard Admission Data Admit Date/Time: 10/08/22 16:36 Attending Provider: Lenny Richard Admit Provider: Kiya Chavarria Primary Care Provider: Julio César Gaffney Other Providers: Hector Marie
== END 2022-10-11 14:08 | disposition home or self-care (01) | DRG 388 ==
LOC: ED 10:14 → SUATTDRO 16:36 → 3W 16:36